=== PATIENT | male | born 1960 | race Caucasian/White ===

== ENCOUNTER 2021-01-16 11:58 | Inpatient (IN) | payer OTHER ==
[~2021-01-16] VITALS: Ht 182.9 cm; Wt 92.6 kg
[2021-01-16] MEDS ORDERED: LORAZEPAM INJ 2 MG/ML VIAL ONE (12:05)
[2021-01-16 12:24] LABS: BASOPHILS % (AUTO) 0.9 % (0.0-2.0); EOSINOPHILS % (AUTO) 2.5 % (0.0-6.0); HEMATOCRIT 44 % (39-51); HEMOGLOBIN 14.4 g/dL (13.5-17.5); LYMPHOCYTES # (AUTO) 0.9 /CMM (0.8-4.8); LYMPHOCYTES % (AUTO) 17.3 % (20.0-44.0); MEAN CORPUSCULAR HGB CONC 33 g/dl (31.0-36.0); MEAN CORPUSCULAR VOLUME 91 fL (80-96); MONOCYTES # (AUTO) 0.4 /CMM (0.1-1.30); MONOCYTES % (AUTO) 8.8 % (2.0-12.0); NEUTROPHILS # (AUTO) 3.5 /CMM (1.8-8.9); NEUTROPHILS % (AUTO) 70.5 % (43.0-81.0); PLATELET COUNT (AUTO) 222 /CMM (150-450); RED BLOOD CELL COUNT(AUTO) 4.81 MIL/uL (4.5-6.0); WHITE BLOOD COUNT (AUTO) 4.9 K/uL (4.3-11.0)
--- NOTE | 2021-01-16 12:24 | NUR ---
Patient leif, from home, came in due to recurrent seizure. On room air, breathing evenly and unlabored. Connected to the monitor and pulse ox. kept comfortable, will continue to monitor accordingly.
--- NOTE | 2021-01-16 12:28 | NUR ---
DECREASE LOC, + SEIZURE ACTIVTY NOTED - ER MD AT BEDSIDE
--- NOTE | 2021-01-16 12:29 | NUR ---
ACTIVE SEIZURE NOTED - ER NOTIFIED - ATIVAN 2 MG IVP X 1
[2021-01-16] MEDS ORDERED: IV NS 0.9% 1,000 ML BAG IV ONE (12:30)
[2021-01-16] MEDS ORDERED: LEVETIRACETAM (500MG) 500 MG in IV NS 0.9% 100 ML IV ONE (12:30)
[2021-01-16] MEDS ORDERED: LORAZEPAM INJ 2 MG/ML VIAL IVP ONE (12:30)
[2021-01-16 12:40] LABS: ALBUMIN 3.6 g/dL (3.4-5.0); BILIRUBIN,DIRECT 0.1 mg/dL (0.0-0.2); BILIRUBIN,TOTAL 0.6 mg/dL (0.2-1.0); CALCIUM, SERUM 9.1 mg/dL (8.5-10.1); POTASSIUM 3.6 mmol/L (3.5-5.1); TOTAL PROTEIN, SERUM 7.1 g/dL (6.4-8.2)
[2021-01-16] MEDS ORDERED: AMLO-213 PO (13:17)
[2021-01-16] MEDS ORDERED: METO-357 PO (13:17)
[2021-01-16] MEDS ORDERED: CHOL200010 PO (13:17)
[2021-01-16] MEDS ORDERED: TAMS-12 PO (13:17)
[2021-01-16] MEDS ORDERED: PHEN100C12 PO (13:17)
[2021-01-16] MEDS ORDERED: LISI20TA30 PO (13:17)
[2021-01-16] MEDS ORDERED: ASPI-1169 PO (13:17)
[2021-01-16] MEDS ORDERED: RIVA10TA PO (13:17)
--- NOTE | 2021-01-16 13:31 | NUR ---
covid 19 swab collected and sent to lab
--- NOTE | 2021-01-16 14:00 | NUR ---
[facility] CALLED ENVIRONMENTAL SCIENCE TECHNICIAN PAGED.
--- NOTE | 2021-01-16 14:20 | NUR ---
LAB HAS THE ANTIGEN NOW.
[2021-01-16] MEDS ORDERED: ONDANSETRON HCL/PF 4 MG/2 ML VIAL IVP PRN (14:30)
[2021-01-16] MEDS ORDERED: phenytoin SODIUM IV 1,000 MG in IV NS 0.9% 100 ML IV ONE (14:30)
[2021-01-16] MEDS ORDERED: HYDROCODONE/APAP 5/325MG TABLET PO PRN (14:30)
[2021-01-16] MEDS ORDERED: IV NS 0.9% 1,000 ML IV PRN (14:30)
[2021-01-16] MEDS ORDERED: ACETAMINOPHEN 325 MG TABLET PO PRN (14:30)
[2021-01-16] MEDS ORDERED: Z GUARD REMEDY 2 OZ OINT TP PRN (14:30)
--- NOTE | 2021-01-16 14:49 | NUR ---
received a call from the lab regarding covid 19 result "negative", notified.
--- NOTE | 2021-01-16 14:55 | NUR ---
GOT BED 306-2
--- NOTE | 2021-01-16 15:50 | NUR ---
RAILROAD WHEELS AND AXLE INSPECTOR ADMITTING NOTE RECEIVED REPORT FROM ER NURSE. PT ARRIVED IN UNIT AND BROUGHT INTO ROOM 306-2 [id number] VIA GURNEY ACCOMPANIED BY ER NURSE. PT IS A/O X 2-3 WITH PERIODS OF CONFUSION, VERBAL, FAROESE SPEAKING AND ABLE TO MAKE NEEDS KNOWN WITH NO C/O PAIN AT THIS TIME. PT IS ON OXYGEN 2LPM VIA NC WITH NO S/SX OF RESPIRATORY DISTRESS OR SOB. PT'S TELE MONITOR SHOWS NSR AT 69 BPM, IN NO CARDIAC DISTRESS AT THIS TIME. PT HAS AN IV ACCESS ON RIGHT AC G#20 SL, AND LEFT FOREARM G#20 SL, BOTH PATENT, INTACT AND FLUSHING WELL WITH ON S/SX OF INFECTION OR IRRITATION NOTED. PT'S SKIN IS INTACT. PT ORIENTED TO UNIT AND TO ROOM WITH SUCCESSFUL RETURN DEMONSTRATION AND VERBALIZATION OF UNDERSTANDING. SAFETY MEASURES IN PLACE: BED IN LOWEST POSITION AND LOCKED WITH BOTH UPPER SIDE RAILS UP X 2. CALL LIGHT PLACED WITHIN REACH. WILL CONTINUE TO MONITOR.
[2021-01-16 18:00] VITALS: BP 107/83
[2021-01-16] MEDS: RIVAROXABAN 10 MG TABLET PO SCH (18:48)
--- NOTE | 2021-01-16 18:50 | NUR ---
GRAVES REGISTRATION SPECIALIST CLOSING NOTE PT IS IN BED, AWAKE, RESPONSIVE AND WATCHING TV. PT IS A/O X 2-3 WITH PERIODS OF CONFUSION, VERBAL, INDONESIAN SPEAKING AND ABLE TO MAKE NEEDS KNOWN WITH NO C/O PAIN AT THIS TIME. PT IS ON OXYGEN 2LPM VIA NC WITH NO S/SX OF RESPIRATORY DISTRESS OR SOB. PT'S TELE MONITOR SHOWS NSR AT 65 BPM WITH OCCASIONAL PAUSES AND A.FIB, IN NO CARDIAC DISTRESS AT THIS TIME. PT HAS AN IV ACCESS ON RIGHT AC G#20 SL, AND LEFT FOREARM G#20 SL, BOTH PATENT, INTACT AND FLUSHING WELL WITH ON S/SX OF INFECTION OR IRRITATION NOTED. ALL CARE, NEEDS, MEDICATIONS AND TREATMENTS GIVEN ON TIME ORDERED PER FACILITY PROTOCOL. SAFETY MEASURES MAINTAINED: BED IN LOWEST POSITION AND LOCKED WITH BOTH UPPER SIDE RAILS UP X 2. CALL LIGHT PLACED WITHIN REACH. WILL ENDORSE TO COMMERCIAL OCEAN CLAMMER NURSE.
--- NOTE | 2021-01-16 19:30 | NUR ---
commercial loan analyst opening notes Received Pt from morning nurse. Pt is resting in bed comfortably. Pt is alert and orientedX2-3 with episode of confusion and able to make needs known. Respiration on 2 L NC with O2 sat is 100%. No SOB. No S/S of distress noted. Tele monitor showed Afib with Hr at 61. Iv site at RAc# 20 is clean, intact and flushes well. Iv site at LFA# 20 is clean, intact and SL. Safety precautions is maintained. Bed at low position, brakes locked, side rails upX3 and padded, hob elevated, urinal at the bedside, bed alarm is on and call light is within reach. Will continue to monitor.
[2021-01-16 20:00] VITALS: BP 134/89
[2021-01-16] MEDS: PHENYTOIN EXTENDED RELEASE 100 MG CAPSULE PO SCH (20:25)
[2021-01-16] MEDS ORDERED: TAMSULOSIN 0.4 MG CAP.SR.24H PO SCH (22:00)
[2021-01-17] VITALS: BP 138/81
[2021-01-17 04:00] VITALS: BP 125/84
[2021-01-17] MEDS: PHENYTOIN EXTENDED RELEASE 100 MG CAPSULE PO SCH (04:01)
[2021-01-17 05:59] LABS: BASOPHILS # (AUTO) 0.1 /CMM (0.0-0.2); EOSINOPHILS % (AUTO) 2.9 % (0.0-6.0); HEMATOCRIT 42 % (39-51); HEMOGLOBIN 13.9 g/dL (13.5-17.5); LYMPHOCYTES # (AUTO) 1.4 /CMM (0.8-4.8); LYMPHOCYTES % (AUTO) 22.8 % (20.0-44.0); MEAN CORPUSCULAR HGB CONC 34 g/dl (31.0-36.0); MEAN CORPUSCULAR VOLUME 89 fL (80-96); MONOCYTES # (AUTO) 0.7 /CMM (0.1-1.30); NEUTROPHILS # (AUTO) 3.9 /CMM (1.8-8.9); NEUTROPHILS % (AUTO) 62.3 % (43.0-81.0); PLATELET COUNT (AUTO) 196 /CMM (150-450); RED BLOOD CELL COUNT(AUTO) 4.65 MIL/uL (4.5-6.0); WHITE BLOOD COUNT (AUTO) 6.2 K/uL (4.3-11.0)
--- NOTE | 2021-01-17 06:40 | NUR ---
supervisor long goods closing notes Pt is resting in bed comfortably. Pt is alert and orientedX2-3 with episode of confusion and able to make needs known. Respiration on 2 L NC with O2 sat is 98%. No SOB. No S/S of distress noted. VS is stable. afebrile. Tele monitor showed Afib with Hr at 60. Routine meds were given as ordered. Iv site at RAc# 20 is clean, intact and flushes well. Iv site at LFA# 20 is clean, intact and infuising well NS@ 75 ml/hr. Kept Pt clean, dry and comfortable. All needs met and attended. Safety precautions is maintained. Seizure precautions is maintained. Bed at low position, brakes locked, side rails upX3 and padded, hob elevated, urinal at the bedside, bed alarm is on and call light is within reach. Will endorse to morning nurse for BHAKTI.
[2021-01-17 06:57] LABS: ALBUMIN 3.3 g/dL (3.4-5.0); BILIRUBIN,TOTAL 0.7 mg/dL (0.2-1.0); CALCIUM, SERUM 8.8 mg/dL (8.5-10.1); CREATININE 0.7 mg/dL (0.6-1.3); PHOSPHORUS 3.5 mg/dL (2.5-4.9); POTASSIUM 3.6 mmol/L (3.5-5.1); TOTAL PROTEIN, SERUM 6.5 g/dL (6.4-8.2)
[2021-01-17 08:00] VITALS: BP 150/102
[2021-01-17] MEDS: RIVAROXABAN 10 MG TABLET PO SCH (08:20)
[2021-01-17] MEDS ORDERED: AMLODIPINE BESYLATE 10 MG TABLET PO SCH (09:00)
[2021-01-17] MEDS ORDERED: LISINOPRIL (20MG) 20 MG TABLET PO SCH (09:00)
[2021-01-17] MEDS ORDERED: METOPROLOL SUCCINATE 50 MG TAB.SR.24H PO SCH (09:00)
[2021-01-17] MEDS ORDERED: RIVAROXABAN 10 MG TABLET PO SCH (09:00)
[2021-01-17] MEDS ORDERED: CHOLECALCIFEROL 1,000 UNIT TABLET (VIT D3) PO SCH (09:00)
[2021-01-17] MEDS ORDERED: ASPIRIN 81 MG TAB.CHEW PO SCH (09:00)
[2021-01-17] MEDS ORDERED: PHEN100C4 PO (11:14)
[2021-01-17 12:00] VITALS: BP 140/81
[2021-01-17] MEDS ORDERED: PHENYTOIN EXTENDED RELEASE 100 MG CAPSULE PO SCH (13:00)
[2021-01-17 15:49] VITALS: BP 147/78
--- NOTE | 2021-01-17 19:06 | NUR ---
RN MS DISCHARGE NOTE PT AWAKE, ALERT , RESPONSIVE, AMBULATES IN ROOM WITH STEADY GAI , NORMAL DIET TOLERATED WELL, NO C/O PAIN , NO C/O DISTRESS SEEN BY DR DESHPANDE AND DR Rambo HUTTON, DISCHARGE ORDER GIVEN , DISCHRAGE AND MED INSTRUCTIONS PROVIDED TO PATIENT, PATIENT NEW PRESCRIPTION SENT BY PROVIDER ELECRONICALLY TO PATIENTS PREFERRED PHARMACY VERBALIZED UNDERSTANDING, BELONGINGS ACCOUNTED FOR , ASSISTED TO HOSPITAL LOBBY VIA WHEELCHAIR , LEFT VIA PRIVATE CAR IN STABLE CONDITION WITH FAMILY MEMBER.
== END 2021-01-17 19:00 | disposition home or self-care (01) | DRG 53 ==
LOC: ER 12:02 → TELE 15:29
PROVIDERS: ADMIT Internal Medicine; ATTEND Nurse Practitioner Acute Care
DX: G40.909 Epilepsy, unspecified, not intractable, without status epilepticus (principal); I25.10 Atherosclerotic heart disease of native coronary artery without angina pectoris; I10 Essential (primary) hypertension; N40.0 Benign prostatic hyperplasia without lower urinary tract symptoms; Z20.822 Contact with and (suspected) exposure to COVID-19; I69.354 Hemiplegia and hemiparesis following cerebral infarction affecting left non-dominant side; I48.91 Unspecified atrial fibrillation; Z79.82 Long term (current) use of aspirin; Z79.899 Other long term (current) drug therapy; I67.2 Cerebral atherosclerosis; Z79.01 Long term (current) use of anticoagulants; N17.9 Acute kidney failure, unspecified
CPT/HCPCS: 36415; 70450-TC; 71045-TC; 80048-TC; 80053-TC; 80061-TC; 80076-TC; 80185-TC; 82962-TC; 83735-TC; 84100-TC; 85025-TC; 87081-TC; 93307-TC; C9803; G0378; J1165; J1953; J2060; J7030

== ENCOUNTER 2021-11-12 10:25 | Emergency (ER) | payer OTHER ==
[~2021-11-12] VITALS: Ht 182.9 cm; Wt 82.6 kg
[~2021-11-12 10:25] MED LIST: AMLO-213 PO; ASPI-1169 PO; CHOL200010 PO; LISI20TA30 PO; METO-357 PO; PHEN100C4 PO; RIVA10TA PO; TAMS-12 PO
--- NOTE | 2021-11-12 10:31 | NUR ---
GHISLAINE FROM HOME C/O WITNESSED SEIZURE EPISODE. THE PATIENT IS ALERT AND ORIENTED X3 WITH EPISODES OF FORGETFULNESS. DENIES PAIN. IN ROOM AIR AND DENIES SOB. RESPIRATION REGULAR AND UNLABORED. ATTACHED TO THE MONITOR. WARM BLANKET PROVIDED FOR COFMORT. SEIZURE PRECAUTIONS TAKEN. WILL CONTINUE TO MONITOR THE PATIENT.
[2021-11-12] MEDS ORDERED: PHEN100C4 PO ×2 (10:34)
[2021-11-12] MEDS ORDERED: BACL10TA PO (10:35)
--- NOTE | 2021-11-12 10:50 | NUR ---
covid antigen swab done and sent to the lab
[2021-11-12 11:23] LABS: BASOPHILS # (AUTO) 0.1 K/uL (0.0-0.2); BASOPHILS % (AUTO) 1.1 % (0.0-2.0); EOSINOPHILS % (AUTO) 6.1 % (0.0-6.0); HEMATOCRIT 38 % (39-51); HEMOGLOBIN 12.7 g/dL (13.5-17.5); LYMPHOCYTES # (AUTO) 0.7 K/uL (0.8-4.8); MEAN CORPUSCULAR HGB CONC 34 g/dl (31.0-36.0); MEAN CORPUSCULAR VOLUME 95 fL (80-96); MONOCYTES # (AUTO) 0.4 K/uL (0.1-1.30); MONOCYTES % (AUTO) 8.3 % (2.0-12.0); NEUTROPHILS % (AUTO) 67.5 % (43.0-81.0); PLATELET COUNT (AUTO) 216 K/uL (150-450); RED BLOOD CELL COUNT(AUTO) 4.02 MIL/uL (4.5-6.0); WHITE BLOOD COUNT (AUTO) 4.4 K/uL (4.3-11.0)
[2021-11-12 11:33] LABS: CALCIUM, SERUM 8.8 mg/dL (8.5-10.1); CREATININE 0.8 mg/dL (0.6-1.3); POTASSIUM 3.6 mmol/L (3.5-5.1)
[2021-11-12 11:38] LABS: ALBUMIN 3.5 g/dL (3.4-5.0); BILIRUBIN,DIRECT 0.1 mg/dL (0.0-0.2); BILIRUBIN,TOTAL 0.2 mg/dL (0.2-1.0); TOTAL PROTEIN, SERUM 6.8 g/dL (6.4-8.2)
--- NOTE | 2021-11-12 11:51 | NUR ---
ROGER BARRON (NEURO) [phone]
[2021-11-12 11:58] LABS: PHENYTOIN (DILANTIN) 10.1 ug/ml (10.0-20.0)
--- NOTE | 2021-11-12 12:28 | NUR ---
LEFT MESSAGE TO DR ROGER BARRON TO CALL ER PER DR LOUIS
[2021-11-12] MEDS ORDERED: phenytoin SODIUM IV 400 MG in IV NS 0.9% 50 ML IV ONE (12:30)
--- NOTE | 2021-11-12 12:51 | NUR ---
urine collected and sent to the lab
--- NOTE | 2021-11-12 13:33 | NUR ---
CALL THE CAR CALLED FOR TRANSPORT. ETA 1-3 HRS. REF # [id number]
--- NOTE | 2021-11-12 13:43 | NUR ---
CHANGED ETA 1700.
--- NOTE | 2021-11-12 17:50 | NUR ---
PT MEDICALLY CLEARED, DISCHARGE TO HOME. STABLE VITALS. DISCHARGE VIA PRIVATE AMBULANCE.
[2021-11-12 17:52] VITALS: BP 135/70
== END 2021-11-12 17:53 | disposition home or self-care (01) ==
LOC: ER 10:28
DX: G40.909 Epilepsy, unspecified, not intractable, without status epilepticus (principal); I48.91 Unspecified atrial fibrillation; Z79.01 Long term (current) use of anticoagulants; Z79.899 Other long term (current) drug therapy; I69.954 Hemiplegia and hemiparesis following unspecified cerebrovascular disease affecting left non-dominant side; Z20.822 Contact with and (suspected) exposure to COVID-19; Z88.0 Allergy status to penicillin; Z79.82 Long term (current) use of aspirin
CPT/HCPCS: 36415; 70450; 71045; 80048; 80076; 80185; 80307; 84484; 85025; 87426; 93005; 96365; 99285; C9803; J1165

== ENCOUNTER 2022-02-19 05:16 | Emergency (ER) | payer OTHER ==
[~2022-02-19] VITALS: Ht 182.9 cm; Wt 81.6 kg
[~2022-02-19 05:16] MED LIST changes: +BACL10TA PO
--- NOTE | 2022-02-19 05:34 | NUR ---
TO ER BED 10. [id number] FROM HOME C/O FALLING FROM BED, COULD NOT GET BACK INTO BED. DENIES KO. ADMITS TO HITTING HEAD. CONNECTED TO MONITOR. FALL PRECAUTIONS IN PLACE. WILL CONTINUE TO MONITOR.
--- NOTE | 2022-02-19 05:59 | NUR ---
COVID SWAB COLLECTED SENT TO LAB
--- NOTE | 2022-02-19 06:03 | NUR ---
RFA #18G S/L; PATENT AND INTACT. BLOOD COLLECTED AND SENT TO LAB
--- NOTE | 2022-02-19 06:04 | NUR ---
BLOOD TAKEN TO CT VIA JONNYRNEYMAR
[2022-02-19 06:13] LABS: BASOPHILS % (AUTO) 0.5 % (0.0-2.0); EOSINOPHILS % (AUTO) 2.7 % (0.0-6.0); HEMATOCRIT 42 % (39-51); HEMOGLOBIN 14.3 g/dL (13.5-17.5); LYMPHOCYTES # (AUTO) 1.1 K/uL (0.8-4.8); MEAN CORPUSCULAR HGB CONC 34 g/dl (31.0-36.0); MEAN CORPUSCULAR VOLUME 88 fL (80-96); MONOCYTES # (AUTO) 0.4 K/uL (0.1-1.30); MONOCYTES % (AUTO) 8.1 % (2.0-12.0); NEUTROPHILS # (AUTO) 3.6 K/uL (1.8-8.9); NEUTROPHILS % (AUTO) 67.7 % (43.0-81.0); PLATELET COUNT (AUTO) 173 K/uL (150-450); RED BLOOD CELL COUNT(AUTO) 4.79 MIL/uL (4.5-6.0); WHITE BLOOD COUNT (AUTO) 5.3 K/uL (4.3-11.0)
--- NOTE | 2022-02-19 06:14 | NUR ---
PT RETURNED TO ER BED [address]
[2022-02-19 06:28] LABS: ALANINE AMINOTRANSFERASE 17 U/L (12-78); ALBUMIN 4.5 g/dL (3.4-5.0); ALKALINE PHOSPHATASE 110 U/L (46-116); ASPARTATE AMINOTRANSFERASE 21 U/L (15-37); BILIRUBIN,DIRECT 0.1 mg/dL (0.0-0.2); BILIRUBIN,TOTAL 0.5 mg/dL (0.2-1.0); CALCIUM, SERUM 9.3 mg/dL (8.5-10.1); CARBON DIOXIDE 34 mmol/L (21-32); CHLORIDE 103 mmol/L (98-107); CREATININE 0.7 mg/dL (0.6-1.3); GLUCOSE 91 mg/dL (74-106); POTASSIUM 3.5 mmol/L (3.5-5.1); SODIUM SERUM 140 mmol/L (136-145); TOTAL PROTEIN, SERUM 8.3 g/dL (6.4-8.2); UREA NITROGEN, BLOOD 15 mg/dL (7-18)
--- NOTE | 2022-02-19 08:07 | NUR ---
SPOKE WITH EDIN ROBLES, STATED SHE IS FAXING CLINICALS TO [facility]AC[facility] AND WILL CALL BACK.
--- NOTE | 2022-02-19 08:12 | NUR ---
SPOKE WITH EDIN STUBBS [phone], ASKED TO BE CALLED BACK WHEN RAPID COVID RESULTS ARE IN.
[2022-02-19] MEDS ORDERED: LEVE750T10 PO (08:41)
[2022-02-19] MEDS ORDERED: CHLO25TA13 PO (08:41)
--- NOTE | 2022-02-19 09:14 | NUR ---
SPOKE WITH ENOC, QUARTER SEAMER AT [facility], AND WAS NOTIFIED THAT THE PT HAS BEEN ACCETED TO NURSING FACILITIES. ([facility] OR [facility]). NOTIED THAT PT OF THE TWO ACCEPTING FACILITIES AND THE PT CHOSE TO GO TO [facility]. ALSO FAXED ED MD NOTE AND COVID STATUS ON PT TO [phone]
[2022-02-19] MEDS ORDERED: PHEN100C4 PO (10:11)
--- NOTE | 2022-02-19 10:16 | NUR ---
DR. LANIER MADE AWARE RE: HOME MEDICATION. WITH NEW ORDER, OKAY TO GIVE AM DOSE OF DILANTIN AND KEPPRA DOSE (DILANTIN 300 MG AND KEPPRA 750 MG). PRIMARY RN AWARE.
[2022-02-19] MEDS ORDERED: LEVETIRACETAM (250 MG) 250 MG TABLET PO ONE ×2 (10:20→11:00)
[2022-02-19] MEDS ORDERED: PHENYTOIN EXTENDED RELEASE 100 MG CAPSULE PO ONE ×2 (10:21→11:00)
--- NOTE | 2022-02-19 10:28 | NUR ---
DILANTIN AND KEPPRA GIVEN VIA PO PER PATIENT REQUESTED AND MD ORDERED. PATIENT MARÍA WELL. PRIMARY RN AWARE.
--- NOTE | 2022-02-19 11:19 | NUR ---
ENOC CALLED REGARDING PT ACCEPTANCE TO [facility] GOING TO ROOM 7B NUMBER FOR REPORT [phone] ETA OF [facility] 1230
--- NOTE | 2022-02-19 11:50 | NUR ---
REPORT GIVEN TO ANGELITA FOR BHAKTI
[2022-02-19 12:02] VITALS: BP 144/82
--- NOTE | 2022-02-19 12:30 | NUR ---
IV removed. Catheter intact and site benign. Pressure and 4x4 applied to site. No bleeding noted.
--- NOTE | 2022-02-19 12:59 | NUR ---
TRANSPORTATION ARRIVED, REPORT WAS GIVEN TO EMT, [facility] IN STABLE CONDITION.
== END 2022-02-19 13:01 ==
LOC: ER 05:18
DX: G40.909 Epilepsy, unspecified, not intractable, without status epilepticus (principal); I69.954 Hemiplegia and hemiparesis following unspecified cerebrovascular disease affecting left non-dominant side; Z79.899 Other long term (current) drug therapy; I48.91 Unspecified atrial fibrillation; Z88.0 Allergy status to penicillin; Z79.01 Long term (current) use of anticoagulants; Z20.822 Contact with and (suspected) exposure to COVID-19
CPT/HCPCS: 36415; 70450; 80048; 80076; 84484; 85025; 87426; 99285; C9803

== ENCOUNTER 2022-11-10 09:11 | Inpatient (IN) | payer OTHER ==
[~2022-11-10] VITALS: Ht 188 cm; Wt 97.5 kg
[~2022-11-10 09:11] MED LIST changes: -BACL10TA PO; +CHLO25TA13 PO; +LEVE750T10 PO; -RIVA10TA PO
[2022-11-10] MEDS ORDERED: LORAZEPAM INJ 2 MG/ML VIAL ONE (09:15)
--- NOTE | 2022-11-10 09:15 | NUR ---
DR FLANAGAN AT BEDSIDE FOR EVAL
--- NOTE | 2022-11-10 09:17 | NUR ---
ACCUCHECK BS 186MG/DL
--- NOTE | 2022-11-10 09:17 | NUR ---
SEIZURE PRECS INITIATED; RT AT BEDSIDE
[2022-11-10] MEDS ORDERED: ROCURONIUM BROMIDE 50 MG/5 ML IV ONE (09:18)
--- NOTE | 2022-11-10 09:19 | NUR ---
DR. FLANAGAN AT BEDSIDE FOR INTUBATION.
--- NOTE | 2022-11-10 09:20 | NUR ---
MOVE SHEET SUBMITTED.
[2022-11-10] MEDS ORDERED: PROPOFOL 100 ML ONE ×4 (09:21→21:06)
--- NOTE | 2022-11-10 09:21 | NUR ---
STEFANIA 100 ML GIVEN.
[2022-11-10] MEDS ORDERED: LORAZEPAM INJ 2 MG/ML VIAL IV ONE (09:30)
[2022-11-10] MEDS: PROPOFOL 100 ML IV PRN ×4 (09:30→21:10)
--- NOTE | 2022-11-10 09:30 | NUR ---
BLOOD COLLECTED AND OBTAINED BY PHLEB AT BEDSIDE
--- NOTE | 2022-11-10 09:32 | NUR ---
COVID SWAB COLLECTED AND SENT TO LAB.
--- NOTE | 2022-11-10 09:35 | NUR ---
QUINTANILLA CATHETER DONE, URINE COLLECTED AND SENT TO LAB.
[2022-11-10 09:44] LABS: BASOPHILS # (AUTO) 0.1 K/uL (0.0-0.2); BASOPHILS % (AUTO) 0.4 % (0.0-2.0); EOSINOPHILS % (AUTO) 0.2 % (0.0-6.0); HEMATOCRIT 44 % (39-51); HEMOGLOBIN 14.6 g/dL (13.5-17.5); LYMPHOCYTES # (AUTO) 0.6 K/uL (0.8-4.8); LYMPHOCYTES % (AUTO) 4.1 % (20.0-44.0); MEAN CORPUSCULAR HGB CONC 33 g/dl (31.0-36.0); MEAN CORPUSCULAR VOLUME 90 fL (80-96); MONOCYTES # (AUTO) 1.5 K/uL (0.1-1.30); MONOCYTES % (AUTO) 9.5 % (2.0-12.0); NEUTROPHILS # (AUTO) 13.5 K/uL (1.8-8.9); NEUTROPHILS % (AUTO) 85.8 % (43.0-81.0); PLATELET COUNT (AUTO) 225 K/uL (150-450); RED BLOOD CELL COUNT(AUTO) 4.89 MIL/uL (4.5-6.0); WHITE BLOOD COUNT (AUTO) 15.8 K/uL (4.3-11.0)
--- NOTE | 2022-11-10 09:44 | NUR ---
VENT SETTINGS: FIO2 50% PEEP 5 PEAK PRESSURE 23 MINUTE VOLUME 9.6 TIDAL VOLUME 557 RESP RATE 16
[2022-11-10 10:03] LABS: CALCIUM, SERUM 8.7 mg/dL (8.5-10.1); CARBON DIOXIDE 20 mmol/L (21-32); CHLORIDE 99 mmol/L (98-107); CREATININE 1.3 mg/dL (0.6-1.3); GLUCOSE 195 mg/dL (74-106); POTASSIUM 3.5 mmol/L (3.5-5.1); SODIUM SERUM 133 mmol/L (136-145); UREA NITROGEN, BLOOD 13 mg/dL (7-18)
--- NOTE | 2022-11-10 10:05 | NUR ---
PT TAKEN TO CT VIA RNEYMAR.
[2022-11-10 10:09] LABS: ALANINE AMINOTRANSFERASE 37 U/L (12-78); ALBUMIN 3.4 g/dL (3.4-5.0); ALCOHOL, BLOOD < 3 mg/dL (0-0); ALKALINE PHOSPHATASE 115 U/L (46-116); ASPARTATE AMINOTRANSFERASE 41 U/L (15-37); BILIRUBIN,DIRECT 0.1 mg/dL (0.0-0.2); BILIRUBIN,TOTAL 0.6 mg/dL (0.2-1.0); TOTAL PROTEIN, SERUM 7.6 g/dL (6.4-8.2)
--- NOTE | 2022-11-10 10:17 | NUR ---
RETURN FROM CT
[2022-11-10] MEDS ORDERED: ASPIRIN 81 MG TAB.CHEW NG SCH (11:00)
[2022-11-10] MEDS ORDERED: METOPROLOL TARTRATE 25 MG TABLET NG SCH (11:00)
[2022-11-10] MEDS ORDERED: DILTIAZEM HCL 50 MG IV IV ONE (11:00)
[2022-11-10] MEDS ORDERED: PHENYTOIN EXTENDED RELEASE 100 MG CAPSULE PO SCH (11:00)
[2022-11-10] MEDS ORDERED: LISINOPRIL (20MG) 20 MG TABLET NG SCH (11:00)
--- NOTE | 2022-11-10 11:11 | NUR ---
RADHA JESUS FOR INPATIENT [phone] WILL CONTACT TRANSFER TEAM.
--- NOTE | 2022-11-10 11:38 | NUR ---
NG TUBE INSERTED. GASTIC CONTENTS ASPERATED. ABDOMINAL GURGLE ON PUSH OF AIR ASCULTATED STAT CHEST X-RAY ORDERED TO CONFIRM PLACEMENT.
[2022-11-10 11:47] LABS: ABG BASE EXCESS 0.5 mmol/L; ABG PCO2 39.2 mmHg (35.0-45.0); ABG PO2 144.4 mmHg (75.0-100.0); COHb 0.5 % (0.5-1.5); MetHb 0.2 % (0.0-1.5); PEEP,BG 5 cm H2O; SITE, ABG Right Radial; VT, ABG 600 mL
[2022-11-10] MEDS ORDERED: DILTIAZEM HCL 50 MG IV ONE (11:59)
--- NOTE | 2022-11-10 12:00 | NUR ---
forensic toxicologist in room
[2022-11-10 13:34] LABS: BILIRUBIN,URINE NEGATIVE (NEGATIVE); COLOR,URINE YELLOW (YELLOW); LEUKOCYTE ESTERASE ,URINE 1+ (NEGATIVE); NITRITE, URINE POSITIVE (NEGATIVE); PROTEIN,URINE 1+ mg/dl (NEGATIVE); UGLUCOSE NEGATIVE (NEGATIVE); UROBILINOGEN,URINE 0.2 EU/dL (0.2)
[2022-11-10 13:40] LABS: BACTERIA,URINE Rare /HPF (None Seen)
[2022-11-10 13:41] LABS: RBC,URINE 0-2 /HPF (0-2); SQUAMOUS EPITHELIAL CELL,UR Few /HPF (None Seen)
--- NOTE | 2022-11-10 14:32 | NUR ---
MOTHER CALLED AND LEFT CONTACT NUMBER. [phone]
--- NOTE | 2022-11-10 16:53 | NUR ---
CALLED RADHA JESUS FOR INPATIENT [phone] FOR UPDATE LEFT VM
--- NOTE | 2022-11-10 17:00 | NUR ---
CALLED STAFF ACCOUNTANT [phone] OPTION 9 FOR UPDATE, KLARISSA JESUS TO CALL US BACK PER GERRI.
--- NOTE | 2022-11-10 17:23 | NUR ---
DR. DESHPANDE FROM [place] SPEAKING WITH DR. NICK.
--- NOTE | 2022-11-10 19:11 | NUR ---
PT IN BED SEDATED ON [facility] VENT O2 SAT 100%. VITALS ON STABLE. BREATHING IS EVEN AND UNLBAORED PT SUCTIONED ORALLY AND THROUGH ET TUBE. PROPOFOL RUNNING AT 35MCG NO S/S OF RESPIRATORY DISTRESS. 18G IN PLACE NO S/S OF INFILTRATION. BILATERALLY WRIST RESTRAINTS APPLIED TO PREVENT SELF INJURY. QUINTANILLA CATHETER IN PLACE DRAINING YELLOW URINE. NG TUBE IN PLACE PATENT AND CLAMPED AT PRE MEASURED LENGTH.
--- NOTE | 2022-11-10 19:21 | NUR ---
KLARISSA [phone] ALMEIDA WILL ACCEPT AT [facility] WILL CALL FOR PEER TO PEER.
--- NOTE | 2022-11-10 19:41 | NUR ---
REPORT RECEIVED FROM LANCE MICHEL. RECEIVED PATIENT SEDATED. CAME IN WITH SEIZURE. PATIENT HAS ET TUBE ATTACHED TO VENT ON AC SETTING WITH TV OF 600, FIO2 40%, RATE 14 AND PEEP 5. PATIENT HAS NG TUBE ON RIGHT NOSTRIL, WITH IFC ATTACHED TO UROBAG. RECEIVED WITH IV CANNULA G20 ON LEFT FA RUNNING IS PROPOFOL AT 38MCG/KG/MIN, AND G20 ON RIGHT WRIST. ATTACHED TO MONITOR. VITALS CHECKED.
--- NOTE | 2022-11-10 20:30 | NUR ---
DECREASE PROPOFOL TO 35MCG/KG/MIN. VITALS BP 105/70mmHg, HR 100bpm, SATS 98%, T 98.4.
--- NOTE | 2022-11-10 21:21 | NUR ---
SPOKE TO KLARISSA ALFARO CM, PT NEEDS HIGHER LEVEL OF CARE. CM GOING TO REFER PT TO [facility]
[2022-11-10] MEDS ORDERED: PHENYTOIN SODIUM IV ONE (23:30)
[2022-11-10] MEDS ORDERED: NS 0.9% IV ONE (23:30)
[2022-11-10 23:46] LABS: ABG BASE EXCESS 0.5 mmol/L; ABG PCO2 34.1 mmHg (35.0-45.0); ABG PO2 122.8 mmHg (75.0-100.0); MetHb 0.4 % (0.0-1.5); O2Hb 97.9 % (94.0-97.0); SITE, ABG Right Radial
--- NOTE | 2022-11-10 23:49 | NUR ---
ABG DONE AT BEDSIDE
[2022-11-11] MEDS ORDERED: PHENYTOIN SODIUM IV 100 MG/2ML VIAL ONE ×3 (00:02→20:05)
--- NOTE | 2022-11-11 00:02 | NUR ---
100MG DILANTIN IV NOT GIVEN. PATIENT JUST STARTED WITH BOLUS OF 2GMS DILANTIN IV. NEXT DOSE IS 6AM OF 100MG DILANTIN IV
[2022-11-11] MEDS ORDERED: phenytoin SODIUM IV 250 MG/5 ML VIAL IV ONE ×2 (00:06→00:09)
[2022-11-11] MEDS: PHENYTOIN SODIUM IV 100 MG/2ML VIAL IV SCH ×4 (01:00→18:00)
--- NOTE | 2022-11-11 01:30 | NUR ---
PATIENT IS CALM. WITH OCCASIONAL MINOR MOVEMENT.
[2022-11-11] MEDS ORDERED: PROPOFOL 100 ML ONE ×6 (01:33→23:02)
[2022-11-11] MEDS: PROPOFOL 100 ML IV PRN ×5 (01:37→23:06)
--- NOTE | 2022-11-11 05:36 | NUR ---
UPDATE GIVEN TO STUDIO ASSOCIATE TIMMY. CALLED KLARISSA ([facility]) ABOUT PT'S ROOM #. LEFT VM. WAITING FOR RESPONSE
--- NOTE | 2022-11-11 06:11 | NUR ---
MAY . FF UP FOR HOSPITAL PLACEMENT.
--- NOTE | 2022-11-11 06:32 | NUR ---
PATIENT WILL NOT BE GOING ANYWHERE SINCE WE DONT HAVE A FINAL ACCEPTANCE FROM ANY HOSPITAL THAT CM CONTACTED.
[2022-11-11 09:06] LABS: BASOPHILS % (AUTO) 0.1 % (0.0-2.0); EOSINOPHILS % (AUTO) 0.1 % (0.0-6.0); HEMATOCRIT 45 % (39-51); HEMOGLOBIN 14.4 g/dL (13.5-17.5); LYMPHOCYTES # (AUTO) 0.8 K/uL (0.8-4.8); LYMPHOCYTES % (AUTO) 4.6 % (20.0-44.0); MEAN CORPUSCULAR HGB CONC 32 g/dl (31.0-36.0); MEAN CORPUSCULAR VOLUME 92 fL (80-96); MONOCYTES # (AUTO) 2.4 K/uL (0.1-1.30); MONOCYTES % (AUTO) 13.2 % (2.0-12.0); NEUTROPHILS # (AUTO) 15.1 K/uL (1.8-8.9); PLATELET COUNT (AUTO) 208 K/uL (150-450); RED BLOOD CELL COUNT(AUTO) 4.88 MIL/uL (4.5-6.0); WHITE BLOOD COUNT (AUTO) 18.4 K/uL (4.3-11.0)
[2022-11-11 09:19] LABS: CALCIUM, SERUM 8.7 mg/dL (8.5-10.1); CREATININE 2.1 mg/dL (0.6-1.3); POTASSIUM 4.1 mmol/L (3.5-5.1)
[2022-11-11] MEDS ORDERED: AMLODIPINE BESYLATE 5 MG TABLET ONE (09:20)
[2022-11-11] MEDS: AMLODIPINE BESYLATE 10 MG TABLET NG SCH (09:21)
[2022-11-11 09:26] LABS: BILIRUBIN,TOTAL 0.4 mg/dL (0.2-1.0); MAGNESIUM 2.4 mg/dL (1.8-2.4); PHOSPHORUS 4.6 mg/dL (2.5-4.9); TOTAL PROTEIN, SERUM 7.3 g/dL (6.4-8.2)
[2022-11-11] MEDS ORDERED: LEVETIRACETAM SOL (5 ML) 100 MG/ML UDC ONE (09:48)
[2022-11-11] MEDS: LEVETIRACETAM SOL (5 ML) 100 MG/ML UDC GT SCH (09:56)
--- NOTE | 2022-11-11 09:57 | NUR ---
NGT IN PLACE, NO RESIDUAL NOTED. KEPPRA GIVEN INDICATED VIA NGT. FLUSHED W/ WATER.
[2022-11-11] MEDS ORDERED: ACETAMINOPHEN 650 MG/20.3 ML UDC ONE (10:16)
[2022-11-11] MEDS ORDERED: ACETAMINOPHEN 650 MG/20.3 ML UDC PO ONE (10:30)
--- NOTE | 2022-11-11 12:09 | NUR ---
REFAXED CLINICALS TO [phone]
--- NOTE | 2022-11-11 12:50 | NUR ---
COVID ANTIGEN COLLECTED AND SENT TO LAB
--- NOTE | 2022-11-11 12:52 | NUR ---
BILL MUELLER [phone] MOTHER CALLED FOR UPDATE.
--- NOTE | 2022-11-11 15:17 | NUR ---
Jono wren in [facility] - 11/11/22 [address] ZAYAS AT [facility] CALLED SPEAKING TO DR LOCKETT.
--- NOTE | 2022-11-11 15:17 | NUR ---
DR NUNES AT [facility] CALLED SPEAKING TO DR LOCKETT.
--- NOTE | 2022-11-11 19:24 | NUR ---
HOOKED ANOTHER PROPOFOL DRIP RUNNING AT 35mcg/kg/min. PROPOFOL LINE CHANGED.
--- NOTE | 2022-11-11 19:25 | NUR ---
RECEIVED PATIENT INTUBATED. FOR ADMISSION TO HIGHER LEVEL OF CARE DUE TO SEIZURE. PATIENT IS INTUBATED WITH ET SIZE OF 7.5 ATTACHED TO VENT ON AC MODE, FIO2 40%, TV 600ML, RATE 14, PEEP 5. PATIENT HAS NGT F16, WITH IFC F16 ATTACHED TO UROBAG. PATIENT HAS 2 IV EL G20 ON LEFT FA, WITH IV EL G20 ON RIGHT HAND. PATIENT IS WITH PROPOFOL DRIP AT 35MCG/KG/MIN. ATTACHED TO URBAN AND REGIONAL PLANNER. VITALS CHECKED.
--- NOTE | 2022-11-11 20:00 | NUR ---
PT IN BED SEDATED BREATHING IS EVEN AND UNLABORED O2SAT 100%. IV CATHETHER IS CLEANS AND DRY NO S/S OF INFLITRATION. PROPOFOL RUNNING AT 35MCG LINE CHANGED BY MATERIALS MGMT TECH NURSE AND EVERY 12H PER HOSPITAL POLICY. NG TUBE CLAMPED IN PLACE AND PATENT GASTRIC CONTENT ASPERATED. QUINTANILLA CATHETER IN PLACE 700ML TEA COLORED URINE OUTPUT. VITAL SIGNS WNL. NO S/S OF ACUTE DISTRESS. HOB ELEVATED TO LOW FOWLERS BED LOCKED IN IN LOWEST POSITION
[2022-11-11 21:52] LABS: ABG BASE EXCESS 1.7 mmol/L; ABG PCO2 38.1 mmHg (35.0-45.0); ABG PH 7.446 (7.350-7.450); ABG PO2 109.8 mmHg (75.0-100.0); COHb 0.2 % (0.5-1.5); MetHb 0.4 % (0.0-1.5); O2Hb 97.5 % (94.0-97.0); PEEP,BG 5 cm H2O; SITE, ABG Left Radial; VT, ABG 600 mL
[2022-11-11] MEDS: IV NS 0.9% 1,000 ML IV PRN (21:59)
--- NOTE | 2022-11-11 22:32 | NUR ---
RECEIVED CALL FROM KATHERINE JESUS [phone]. UPDATES GIVEN TO HER
--- NOTE | 2022-11-11 23:05 | NUR ---
HOOKED ANOTHER PROPOFOL DRIP, RUNNING AT 35mcg/kg/min.
[2022-11-12] VITALS (12 sets, daily range): BP systolic 113–156; BP diastolic 47–89
[2022-11-12] MEDS ORDERED: PHENYTOIN SODIUM IV 100 MG/2ML VIAL ONE ×3 (01:27→11:13)
[2022-11-12] MEDS: PHENYTOIN SODIUM IV 100 MG/2ML VIAL IV SCH ×3 (01:30→12:26)
--- NOTE | 2022-11-12 02:18 | NUR ---
POSITIONED PATIENT COMFORTABLY
--- NOTE | 2022-11-12 03:07 | NUR ---
SUCTION SECRETIONS DONE. PATIENT HAS COUGH REFLEX DURING SUCTIONING
[2022-11-12] MEDS ORDERED: PROPOFOL 100 ML ONE ×2 (03:47→08:01)
[2022-11-12] MEDS: PROPOFOL 100 ML IV PRN (03:51)
--- NOTE | 2022-11-12 05:47 | NUR ---
POSITIONED COMFORTABLY. FLUSHING DONE TO RIGHT HAND IV CANNULA
--- NOTE | 2022-11-12 07:40 | NUR ---
XRAY DONE BY TECH AT BEDSIDE
[2022-11-12] MEDS ORDERED: ACETAMINOPHEN 650 MG/SUPP.RECT RC ONE ×2 (07:56→08:00)
--- NOTE | 2022-11-12 07:57 | NUR ---
ORAL CARE DONE TO THE PT
--- NOTE | 2022-11-12 08:17 | NUR ---
called LANCE Jacob - counseling case manager - case presented - needs HLOC transfer The patient is a [facility] patient - Cecil RN will follow up with Austin JESUS at 1000 am.
--- NOTE | 2022-11-12 08:30 | NUR ---
PT IN BED SEDATED. AM CARE AND BED BATH GIVEN LINENS CHANGED. 100.7 TEMPRATURE ASSESSED RECTAL TYLENOL GIVEN. SACRAL DTI NOTED ON ASSESSMENT. Addendum: 11/12/22 at 0833 by KEIRY DTI MEASURES APPROXIMATELY 2'', DARK PURPLE IN COLOR
[2022-11-12] MEDS ORDERED: LEVETIRACETAM SOL (5 ML) 100 MG/ML UDC ONE ×2 (08:49→08:50)
[2022-11-12 08:50] LABS: BASOPHILS % (AUTO) 0.1 % (0.0-2.0); EOSINOPHILS % (AUTO) 0.1 % (0.0-6.0); HEMATOCRIT 41 % (39-51); HEMOGLOBIN 13.5 g/dL (13.5-17.5); LYMPHOCYTES # (AUTO) 0.6 K/uL (0.8-4.8); LYMPHOCYTES % (AUTO) 2.9 % (20.0-44.0); MEAN CORPUSCULAR HGB CONC 33 g/dl (31.0-36.0); MEAN CORPUSCULAR VOLUME 91 fL (80-96); MONOCYTES # (AUTO) 2.7 K/uL (0.1-1.30); MONOCYTES % (AUTO) 13.3 % (2.0-12.0); NEUTROPHILS # (AUTO) 16.8 K/uL (1.8-8.9); NEUTROPHILS % (AUTO) 83.6 % (43.0-81.0); PLATELET COUNT (AUTO) 200 K/uL (150-450); RED BLOOD CELL COUNT(AUTO) 4.56 MIL/uL (4.5-6.0); WHITE BLOOD COUNT (AUTO) 20.1 K/uL (4.3-11.0)
[2022-11-12 09:00] LABS: CALCIUM, SERUM 8.6 mg/dL (8.5-10.1); POTASSIUM 4.1 mmol/L (3.5-5.1)
[2022-11-12] MEDS: LEVETIRACETAM SOL (5 ML) 100 MG/ML UDC GT SCH ×2 (09:00→17:51)
[2022-11-12 09:06] LABS: ALBUMIN 2.6 g/dL (3.4-5.0); BILIRUBIN,DIRECT 0.2 mg/dL (0.0-0.2); BILIRUBIN,TOTAL 0.4 mg/dL (0.2-1.0); TOTAL PROTEIN, SERUM 6.9 g/dL (6.4-8.2)
--- NOTE | 2022-11-12 09:09 | NUR ---
PT'S PROPOFOL 35 mcg/kg/min decreased to 15 mcg/kg/min as requested by MD.
--- NOTE | 2022-11-12 09:26 | NUR ---
PT'S PROPOFOL DRIP DISCONTINUED REQUESTED BY .
[2022-11-12] MEDS: IV NS 0.9% 1,000 ML IV PRN (09:28)
--- NOTE | 2022-11-12 09:42 | NUR ---
PROPOFOL WAS HELD PT BEGAN TO WAKE UP OPEN EYES AND FOLLOW DIRECTIONS. OPENS EYES WHEN PROMPTED AND IS ABLE TO SQUEZZE RIGHT HAND NOT ABLE TO MOVE OR USE LEFT HAND Addendum: 11/12/22 at 0957 by KEIRY MD PAUL
--- NOTE | 2022-11-12 09:43 | NUR ---
RT AT BEDSIDE CHANGED THE [facility] VENT SETTING TO SIMV 4, PS 15, PEEP 5, ABG 1 HOUR REQUESTED BY .
--- NOTE | 2022-11-12 09:50 | NUR ---
URINE SPECIMEN COLLECTED AND SENT LAB.
[2022-11-12] MEDS ORDERED: LEVOFLOXACIN 750 MG /D5W 150ML PIGGYBACK IV ONE (11:00)
[2022-11-12] MEDS ORDERED: IV NS 0.9% 1,000 ML BAG IV ONE (11:00)
[2022-11-12 11:07] LABS: ABG BASE EXCESS -0.7 mmol/L; ABG PCO2 44.7 mmHg (35.0-45.0); ABG PH 7.364 (7.350-7.450); ABG PO2 108.6 mmHg (75.0-100.0); COHb 0.3 % (0.5-1.5); MetHb 0.3 % (0.0-1.5); O2Hb 97.1 % (94.0-97.0); PEEP,BG 5 cm H2O; SITE, ABG Left Radial; VENT MODE, BG SIMV 40% PS15
[2022-11-12] MEDS ORDERED: LEVOFLOXACIN 750 MG /D5W 150ML 150 ML IV ONE (11:16)
[2022-11-12 11:20] LABS: BILIRUBIN,URINE 1+ (NEGATIVE); COLOR,URINE YELLOW (YELLOW); LEUKOCYTE ESTERASE ,URINE 1+ (NEGATIVE); NITRITE, URINE NEGATIVE (NEGATIVE); PH,URINE 5.5 (5.0-8.0); PROTEIN,URINE 1+ mg/dl (NEGATIVE); UGLUCOSE NEGATIVE (NEGATIVE); UROBILINOGEN,URINE 0.2 EU/dL (0.2)
[2022-11-12 11:46] LABS: BACTERIA,URINE Few /HPF (None Seen); SQUAMOUS EPITHELIAL CELL,UR Rare /HPF (None Seen); WBC,URINE 21-50 /HPF (0-3)
--- NOTE | 2022-11-12 12:35 | NUR ---
PT EXTUBATED AND AWAKE ABLE TO FOLLOW COMMANDS BREATHING IS UNLABORED 95% O2 SAT
--- NOTE | 2022-11-12 12:44 | NUR ---
RT Pt extubated at 1235 per MD Peleg phone order post ABG and weaning trial. RN at bedside. Pt placed on 3 LPM via NC post extubation. Pt awake and responsive. No SOB noted at this time. Will continue to monitor.
--- NOTE | 2022-11-12 13:42 | NUR ---
GOT BED 261 ADMITTING INFORMED.
--- NOTE | 2022-11-12 14:20 | NUR ---
PRUNER AT BED SIDE
--- NOTE | 2022-11-12 15:05 | NUR ---
REPORT GIVEN TO GREGORY LUCAS FOR BHAKTI
--- NOTE | 2022-11-12 15:40 | NUR ---
PT TAKEN TO ICU VIA ISABELLA WITH MYSELF AND ANOTHER RN
[2022-11-12] MEDS: IV D5/ 0.9% NACL 1,000 ML IV SCH (17:21)
[2022-11-12 17:28] LABS: BASOPHILS # (AUTO) 0.1 K/uL (0.0-0.2); BASOPHILS % (AUTO) 0.4 % (0.0-2.0); EOSINOPHILS % (AUTO) 0.1 % (0.0-6.0); HEMATOCRIT 44 % (39-51); HEMOGLOBIN 13.8 g/dL (13.5-17.5); LYMPHOCYTES # (AUTO) 0.6 K/uL (0.8-4.8); LYMPHOCYTES % (AUTO) 3.3 % (20.0-44.0); MEAN CORPUSCULAR HGB CONC 32 g/dl (31.0-36.0); MEAN CORPUSCULAR VOLUME 93 fL (80-96); MONOCYTES # (AUTO) 2.4 K/uL (0.1-1.30); NEUTROPHILS # (AUTO) 15.6 K/uL (1.8-8.9); NEUTROPHILS % (AUTO) 83.2 % (43.0-81.0); PLATELET COUNT (AUTO) 153 K/uL (150-450); RED BLOOD CELL COUNT(AUTO) 4.72 MIL/uL (4.5-6.0); WHITE BLOOD COUNT (AUTO) 18.8 K/uL (4.3-11.0)
[2022-11-12] MEDS: PHENYTOIN EXTENDED RELEASE 100 MG CAPSULE PO SCH (17:51)
[2022-11-12] MEDS: CEFTRIAXONE 1 G in IV D5W 50 ML IV SCH (18:03)
--- NOTE | 2022-11-12 18:27 | NUR ---
RN/ICU- ADMITTED THIS 61 Y/O MAKE FROM ER AT 1540 FROM ER PER ACLS PROTOCOL. DIAGNOSIS:RESPIRATORY FAILURE, SEIZURE. ROUTINE ICU ADMISSION CARE INITIATED. PT. AWAKE, ALERT, ORIENTED X3, SLOW TO RESPOND BUT APPROPRIATE. FINK WEAKLY EXCEPT LEFT UE WHICH IS FLACCID. EKG ATRIAL FIB W/ CVR ,BP-127/63, BREATHING SPONTANEOUSLY TO ROOM AIR WITH O2 SUPPORT OF 3L/NC, SATS.-98%. NOTED SOME SKIN ISSUES. REFER TO SKIN PROBLEM ASSESSMENT AND WOUND PHOTO FOR DETAILS. INITIAL TREATMENT GIVEN PER PROTOCOL. WOUND NURSE CONSULT DONE. BEDSIDE SWALLOW EVAL. DONE. PT. ABLE TO DRINK WATER, APPLE SAUCE AND PILLS TAKEN WITH NO PROBLEMS HOB AT 60 DEGREES AT ALL TIMES. ASPIRATION PRECAUTIONS IN EFFECT.PT. IS A FULL CODE. DENIES ANY PAIN OR DISCOMFORT. ADMISSION ORDERS RECEIVED FROM DR. BURT.
--- NOTE | 2022-11-12 19:45 | NUR ---
RN NOTE RECEIVED CALL FROM PRINCESS FROM [facility] INFORMING BED IS AVAILABLE FOR PT. WILL BE IN ICU 8WEST, ROOM 8324. PREFERS ONLY DAYTIME TRANSFERS; PREFERRED TO TRANSFER PT EARLIEST 0800, NO LATER THAN 1600 THEY HAVE RESOURCES AVAILABLE IN AM FOR CONTINUOUS EEG MONITORING. PROVIDED PHONE NUMBER AND ADDRESS [address] [place] [id number]
--- NOTE | 2022-11-12 20:48 | NUR ---
RITUAL CIRCUMCISER OPENING NOTE PT RECEIVED IN BED, AWAKE, A&O X3, LETHARGIC WITH DELAYED SPEECH. PT NOTED TO BE ON 3L NC WITH CURRENT O2SAT OF 97%; NOTED TO HAVE NON-PRODUCTIVE COUGH, NO SOB, NON-LABORED AND EQUAL BREATHING. PT ATTACHED TO BEDSIDE MONITOR, AFIB CONTROLLED WITH HR OF 106. QUINTANILLA INTACT AND PATENT, DRAINING CLEAR AND TEA-COLORED URINE. IV ACCESS ON LFA 18G AND RIGHT HAND 20G INTACT AND PATENT, FLUSHES EASILY WITH NO RESISTANCE; D5NS INFUSING AT 100 ML/HR. BED IN LOWEST POSITION, CALL LIGHT WITHIN REACH, SIDE RAILS UP X3. WILL CONTINUE TO MONITOR THROUGHOUT THE NIGHT.
[2022-11-12] MEDS ORDERED: FAMOTIDINE/PF INJ 20 MG/2 ML VIAL IV SCH (21:00)
[2022-11-12] MEDS: TAMSULOSIN 0.4 MG CAP.SR.24H NG SCH (21:17)
[2022-11-12] MEDS: METOPROLOL TARTRATE 25 MG TABLET NG SCH (21:19)
[2022-11-12] MEDS: HEPARIN SODIUM, PORCINE 5000 UNITS/1 ML VIAL SQ SCH (21:22)
--- NOTE | 2022-11-12 21:24 | NUR ---
RN NOTE CURRENT DIET ORDER IS NPO; ASKED DR. BURT FOR NEW DIET PT IS AWAKE, A&O X3, FOLLOWS SIMPLE COMMANDS AND HOW DAYSHIFT RN PERFORMED BEDSIDE SWALLOW SCREEN WITH NO COUGHING, GAGGING, CHOKING NOTED. RECEIVED ORDER FOR PUREED DIET.
[2022-11-13] VITALS (24 sets, daily range): BP systolic 116–151; BP diastolic 52–92
[2022-11-13] MEDS: IV D5/ 0.9% NACL 1,000 ML IV SCH (03:07)
[2022-11-13 04:56] LABS: ALBUMIN 2.3 g/dL (3.4-5.0); BILIRUBIN,TOTAL 0.3 mg/dL (0.2-1.0); CALCIUM, SERUM 8.6 mg/dL (8.5-10.1); CREATININE 1.2 mg/dL (0.6-1.3); POTASSIUM 3.7 mmol/L (3.5-5.1); TOTAL PROTEIN, SERUM 6.6 g/dL (6.4-8.2)
--- NOTE | 2022-11-13 06:35 | NUR ---
SUPERVISOR POULTRY PROCESSING CLOSING NOTE PT REMAINS IN BED, ASLEEP, EASILY AROUSABLE, A&O X3, CALM, COOPERATIVE, ABLE TO MAKE NEEDS KNOWN. NEURO STATUS REMAINS STABLE WITH NO SEIZURE ACTIVITY THROUGHOUT THE NIGHT. CONTINUES TO BE ON 3L NC WITH O2SAT RANGING FROM 92%-100%; CONTINUES TO HAVE NON-PRODUCTIVE COUGH; NO OTHER S/S OF RESP DISTRESS, NO SOB, NON-LABORED AND EQUAL BREATHING. ATTACHED TO BEDSIDE MONITOR, AFIB CONTROLLED WITH HR RANGING FROM 77-106 THROUGHOUT THE NIGHT. QUINTANILLA INTACT AND PATENT, DRAINING CLEAR AND TEA-COLORED URINE. RIGHT HAND 20G AND LFA 18G INTACT AND PATENT WITH D5NS INFUSING AT 100 ML/HR. ALL DUE MEDS ADMINISTERED DURING THE NIGHT. BED IN LOWEST POSITION, CALL LIGHT WITHIN REACH, SIDE RAILS UP X3. WILL ENDORSE TO DAYSHIFT NURSE TO CONTINUE CARE.
--- NOTE | 2022-11-13 06:51 | NUR ---
RN NOTE RECEIVED TEXT FROM DR. BURT TO HOLD TRANSFER TO [facility]. WILL CALL [facility]
--- NOTE | 2022-11-13 07:01 | NUR ---
RN NOTE CALLED SUMAN LUCAS FROM [facility] UPDATING THAT TRANSFER WILL BE ON HOLD D/T NEUROLOGIST (DR. MAHMOOD) IS AVAILABLE TO COME AND ASSESS PT.
[2022-11-13 07:33] LABS: PHENYTOIN (DILANTIN) 7.1 ug/ml (10.0-20.0)
[2022-11-13] MEDS: LEVETIRACETAM SOL (5 ML) 100 MG/ML UDC GT SCH (08:25)
[2022-11-13] MEDS: METOPROLOL TARTRATE 25 MG TABLET NG SCH ×2 (08:28→20:36)
[2022-11-13] MEDS: AMLODIPINE BESYLATE 10 MG TABLET NG SCH (08:28)
[2022-11-13] MEDS: chlorproMAZINE HCL 25 MG TABLET PO SCH (08:32)
[2022-11-13] MEDS: FAMOTIDINE (20 MG) 20 MG TABLET PO SCH (09:04)
[2022-11-13] MEDS: HEPARIN SODIUM, PORCINE 5000 UNITS/1 ML VIAL SQ SCH ×2 (09:05→20:39)
--- NOTE | 2022-11-13 09:52 | NUR ---
WOUND CARE CONSULT: PT PRESENTS WITH SACRAL DEEP TISSUE INJURY WHICH IS INTACT AND EXTENDS TO BUTTOCKS, PRESENT ON ADMISSION. PT ALSO NOTED TO HAVE LEFT LOWER LEG DRY SCAB AND DISCOLORATION/DUSKY COLOR TO LEFT FOOT AND TOES WITH DRY ABRASIONS TO LEFT TOES, ALSO PRESENT ON ADMISSION. PT STATES THAT HE FELL ONTO HIS BUTTOCKS AT HOME, PRIOR TO ADMISSION. RECOMMENDATIONS MADE FOR SKIN PROTECTION. DISCUSSED WITH NURSING STAFF. RN TO DISCUSS LEFT FOOT DUSKY COLOR WITH PMD. FIRST STEP LOW AIRLOSS MATTRESS IS ON ORDER. MD IN AGREEMENT WITH PLAN OF CARE. Addendum: 11/13/22 at 0955 by SHIRA FINCH WNDNU Amended: Links added.
[2022-11-13] MEDS: LACOSAMIDE 50 MG TABLET PO SCH ×2 (10:24→20:36)
[2022-11-13] MEDS ORDERED: IV D5/ 0.9% NACL 1,000 ML IV PRN (10:56)
[2022-11-13] MEDS ORDERED: GADOTERATE MEGLUMINE 10 MMOL/20 ML VIAL IV ONE (16:12)
[2022-11-13] MEDS ORDERED: LEVETIRACETAM SOL (5 ML) 100 MG/ML UDC PO SCH (17:00)
[2022-11-13] MEDS: CEFTRIAXONE 1 G in IV D5W 50 ML IV SCH (17:06)
[2022-11-13] MEDS: PHENYTOIN EXTENDED RELEASE 100 MG CAPSULE PO SCH ×3 (17:06→17:40)
[2022-11-13] MEDS: PROSOURCE / PROSTAT (PYXIS) 30 ML UDC PO SCH (17:07)
--- NOTE | 2022-11-13 21:25 | NUR ---
STUDIO COORDINATOR OPENING NOTE PT RECEIVED IN BED, AWAKE, A&O X4, CALM, COOPERATIVE, SPEECH IMPROVED, ABLE TO OPEN BOTH EYES. PT ON 3L NC WITH CURRENT O2SAT OF 99%; NOTED TO HAVE COUGH; NO OTHER S/S OF RESP DISTRESS, NO SOB, NON-LABORED AND EQUAL BREATHING. PT ATTACHED TO BEDSIDE MONITOR, AFIB CONTROLLED WITH CURRENT HR OF 89. QUINTANILLA INTACT AND PATENT, DRAINING CLEAR AND TEA-COLORED URINE. IV ACCESS ON RIGHT HAND 20G AND LFA 18G, INTACT AND PATENT WITH D5NS INFUSING AT 50 ML/HR. BED IN LOWEST POSITION, CALL LIGHT WITHIN REACH, SIDE RAILS UP X3. WILL CONTINUE TO MONITOR THROUGHOUT THE NIGHT.
[2022-11-13] MEDS: TAMSULOSIN 0.4 MG CAP.SR.24H NG SCH (21:44)
[2022-11-14] VITALS (15 sets, daily range): BP systolic 102–155; BP diastolic 48–96
[2022-11-14 03:41] LABS: BASOPHILS % (AUTO) 0.4 % (0.0-2.0); EOSINOPHILS % (AUTO) 1.2 % (0.0-6.0); HEMATOCRIT 45 % (39-51); HEMOGLOBIN 14.8 g/dL (13.5-17.5); LYMPHOCYTES # (AUTO) 0.7 K/uL (0.8-4.8); LYMPHOCYTES % (AUTO) 7.2 % (20.0-44.0); MEAN CORPUSCULAR HGB CONC 33 g/dl (31.0-36.0); MEAN CORPUSCULAR VOLUME 92 fL (80-96); MONOCYTES # (AUTO) 1.4 K/uL (0.1-1.30); MONOCYTES % (AUTO) 14.6 % (2.0-12.0); NEUTROPHILS # (AUTO) 7.2 K/uL (1.8-8.9); NEUTROPHILS % (AUTO) 76.6 % (43.0-81.0); PLATELET COUNT (AUTO) 183 K/uL (150-450); RED BLOOD CELL COUNT(AUTO) 4.93 MIL/uL (4.5-6.0); WHITE BLOOD COUNT (AUTO) 9.4 K/uL (4.3-11.0)
[2022-11-14 03:49] LABS: CALCIUM, SERUM 8.8 mg/dL (8.5-10.1); CREATININE 0.9 mg/dL (0.6-1.3); POTASSIUM 3.5 mmol/L (3.5-5.1)
--- NOTE | 2022-11-14 06:46 | NUR ---
HEDGE FUND MANAGER CLOSING NOTE PT REMAINS IN BED, AWAKE, A&O X4, CALM, COOPERATIVE; NO SEIZURES/FEVERS NOTED THROUGHOUT THE NIGHT. CONTINUES TO BE ON 3L NC WITH O2SAT RANGING FROM 94%-100% THROUGHOUT THE NIGHT; CONTINUES TO HAVE NON-PRODUCTIVE COUGH; NO S/S OF RESP DISTRESS. ATTACHED TO BEDSIDE MONITOR, AFIB CONTROLLED WITH HR RANGING FROM 74-93. QUINTANILLA INTACT AND PATENT, DRAINING CLEAR AND TEA-COLORED URINE. IV ACCESS ON RIGHT HAND 20G AND LFA 18G INTACT AND PATENT, FLUSHES EASILY WITH NO RESISTANCE. SACRAL AND BUTTOCKS DTI CLEANSED AND NEW MEPILEX APPLIED; WOUND STABLE WITH NO CHANGES. ALL DUE MEDS ADMINISTERED DURING THE NIGHT. BED IN LOWEST POSITION, CALL LIGHT WITHIN REACH, SIDE RAILS UP X3. WILL ENDORSE TO DAYSHIFT NURSE TO CONTINUE CARE.
--- NOTE | 2022-11-14 07:10 | NUR ---
MACHINE WOODWORKING SANDER OPENING NOTE: RECEIVED PT. IN BED, AWAKE, AOX4. TACHYPNEIC AT 23 BREATHS/MIN AT THIS TIME. PLUG ASSEMBLER READS AFIB CONTROLLED AT THIS TIME. SKIN ISSUES NOTED, WILL DO WOUND TREATMENT ORDERED. ON QUINTANILLA CATHETER, WITH YELLOW CLOUDY URINE NOTED. IV ACCESS ON L FA #18G, PATENT AND SALINE LOCKED. IV SITE DRESSING C/D/I WITH NO S/S OF INFILTRATION. SAFETY MEASURES IN PLACE: BED IN LOWEST AND LOCKED POSITION, HOB ELEVATED AT 40 DEGREES, BED ALARM ON, CALL LIGHT WITHIN REACH, SIDE RAILS UP X2. WILL TURN AND REPOSITION IN BED AT LEAST Q2H. WILL CONTINUE TO MONITOR PT. FOR ANY CHANGES.
[2022-11-14] MEDS: chlorproMAZINE HCL 25 MG TABLET PO SCH (09:17)
[2022-11-14] MEDS: PROSOURCE / PROSTAT (PYXIS) 30 ML UDC PO SCH ×3 (09:17→17:40)
[2022-11-14] MEDS: LEVETIRACETAM SOL (5 ML) 100 MG/ML UDC PO SCH ×2 (09:18→17:40)
[2022-11-14] MEDS: METOPROLOL TARTRATE 25 MG TABLET PO SCH ×2 (09:18→21:03)
[2022-11-14] MEDS: FAMOTIDINE (20 MG) 20 MG TABLET PO SCH (09:19)
[2022-11-14] MEDS: ASPIRIN 81 MG TAB.CHEW PO SCH (09:19)
[2022-11-14] MEDS: LISINOPRIL (20MG) 20 MG TABLET PO SCH (09:19)
[2022-11-14] MEDS: PHENYTOIN EXTENDED RELEASE 100 MG CAPSULE PO SCH ×2 (09:20→17:40)
[2022-11-14] MEDS: LACOSAMIDE 50 MG TABLET PO SCH ×2 (09:20→21:03)
[2022-11-14] MEDS: AMLODIPINE BESYLATE 10 MG TABLET PO SCH (09:20)
[2022-11-14] MEDS: HEPARIN SODIUM, PORCINE 5000 UNITS/1 ML VIAL SQ SCH ×2 (09:21→21:05)
--- NOTE | 2022-11-14 09:30 | NUR ---
FISH CAKE MAKER NOTE: PT. OFF O2 VIA NASAL CANNULA. SATURATING 94-95% ON ROOM AIR. WILL CONTINUE TO MONITOR O2 SAT.
--- NOTE | 2022-11-14 10:00 | NUR ---
SUPERVISOR PLASTIC SHEETS NOTE: PT EVAL DONE AT BEDSIDE, PLEASE SEE PT ASSESSMENT. REFERRED TO CASE MANAGEMENT PHYSICAL THERAPIST RECOMMENDS PHYSICAL THERAPY SERVICES POST DISCHARGE.
--- NOTE | 2022-11-14 12:10 | NUR ---
RAILROAD TRACK INSPECTOR NOTE: TRANSFERRED PT TO TELE ROOM 104 VIA HOSPITAL BED. RECEIVED REPORT BY LANCE ROACH. PT AWAKE, AOX4. ON RA, NO S/S OF RESPIRATORY DISTRESS. NO COMPLAINTS OF PAIN/DISCOMFORT. TISSUE COORDINATOR READS AFIB CONTROLLED AT THIS TIME. WOUND TREATMENT DONE ORDERED. QUINTANILLA CATHETER, DRAINING YELLOW CLOUDY URINE. IV ACCESS ON L FA #18G, PATENT AND SALINE LOCKED. IV SITE DRESSING C/D/I WITH NO S/S OF INFILTRATION. SAFETY MEASURES MAINTAINED: BED IN LOWEST AND LOCKED POSITION, HOB ELEVATED AT 40 DEGREES, BED ALARM ON, CALL LIGHT WITHIN REACH, SIDE RAILS UP X2. ALL MEDICATIONS AND BELONGINGS ACCOUNTED FOR. WILL CONTINUE TO MONITOR.
--- NOTE | 2022-11-14 12:24 | NUR ---
CNC OPERATOR MACHINISTLOFTER NOTE: TRANSFERRED PT TO TELE ROOM 104 VIA HOSPITAL BED. REPORT GIVEN AT BEDSIDE TO [employer] ENOC. PT. REMAINS, AWAKE, AOX4. ON RA, NO S/S OF REPSIRATORY DISTRESS. NO COMPLAINTS OF PAIN/DISCOMFORT. METAL TILE SETTER READS AFIB CONTROLLED AT THIS TIME. WOUND TREATMENT DONE ORDERED. ON QUINTANILLA CATHETER, DRAINED 400 ML YELLOW CLOUDY URINE SO FAR. IV ACCESS ON L FA #18G, PATENT AND SALINE LOCKED. IV SITE DRESSING C/D/I WITH NO S/S OF INFILTRATION. SAFETY MEASURES MAINTAINED: BED IN LOWEST AND LOCKED POSITION, HOB ELEVATED AT 40 DEGREES, BED ALARM ON, CALL LIGHT WITHIN REACH, SIDE RAILS UP X2. TURNED AND REPOSITIONED IN BED AT LEAST Q2H. PT. CHART, MEDICATIONS AND BELONGINGS HANDED OVER TO ENOC LUCAS AT BEDSIDE. ENDORSED CONTINUITY OF CARE.
--- NOTE | 2022-11-14 20:31 | NUR ---
RN CLOSING NOTE: PATIENT IN BED. AOX4. BREATHING ON RA 02 SAT OF 100%. NO S/S OF RESPIRATORY DISTRESS. NO COMPLAINTS OF PAIN/DISCOMFORT. DOMINATRIX READS AFIB CONTROLLED AT THIS TIME. WOUND TREATMENT DONE ORDERED. QUINTANILLA CATHETER, DRAINING YELLOW CLOUDY URINE. IV ACCESS ON L FA #18G, PATENT AND SALINE LOCKED. IV SITE DRESSING C/D/I WITH NO S/S OF INFILTRATION. SAFETY MEASURES MAINTAINED: BED IN LOWEST AND LOCKED POSITION, HOB ELEVATED AT 40 DEGREES, BED ALARM ON, CALL LIGHT WITHIN REACH, SIDE RAILS UP X2. WILL ENDORSE CONTINUITY OF CARE TO NIGHTSHIFT.
--- NOTE | 2022-11-14 20:40 | NUR ---
BACK TENDER PAPER MACHINE OPENING NOTE PT RECEIVED IN BED, AWAKE, A&O X4, CALM, COOPERATIVE. PT ON RA WITH CURRENT O2SAT OF 94%; PT DENIES ANY SOB; NOTED TO HAVE COUGH WITH NO OTHER S/S OF RESP DISTRESS, NON-LABORED AND EQUAL BREATHING. PT ATTACHED TO EXTERNAL MONITOR, AFIB CONTROLLED WITH CURRENT HR OF 90. QUINTANILLA INTACT AND PATENT, DRAINING CLEAR AND TEA-COLORED URINE. IV ACCESS ON LFA 18G, INTACT AND PATENT, FLUSHES EASILY WITH NO RESISTANCE. BED IN LOWEST POSITION, CALL LIGHT WITHIN REACH, SIDE RAILS UP X3, HOB ELEVATED AT 40 DEGREES. WILL CONTINUE TO MONITOR THROUGHOUT THE NIGHT.
[2022-11-14] MEDS: TAMSULOSIN 0.4 MG CAP.SR.24H PO SCH (21:04)
[2022-11-14] MEDS: LINEZOLID 600 MG TABLET PO SCH (21:04)
[2022-11-15] VITALS: BP 151/90
[2022-11-15 04:00] VITALS: BP 156/88
--- NOTE | 2022-11-15 06:44 | NUR ---
AUTOMOBILE BRAKES BONDER CLOSING NOTE PT REMAINS IN BED, AWAKE, A&O X4, CALM AND COOPERATIVE WITH PERIODS OF RESTLESSNESS AND WOULD FIND PT PUTTING LEGS OVER RAILING. REMAINS ON ROOM AIR WITH O2SAT RANGING FROM 94%-99%; CONTINUES TO HAVE COUGH WITH NO OTHER S/S OF RESP DISTRESS. ATTACHED TO EXTERNAL MONITOR, AFIB CONTROLLED WITH HR RANGING FROM 80-90. SACRAL DTI CLEANSED AND NEW DRESSING APPLIED. LFA 18G INTACT AND PATENT, FLUSHES EASILY WITH NO RESISTANCE; NO MEDS/FLUIDS INFUSING THROUGH. ALL DUE MEDS ADMINISTERED DURING THE NIGHT. BED IN LOWEST POSITION, CALL LIGHT WITHIN REACH, SIDE RAILS UP X3. HOB ELEVATED AT 40 DEGREES. WILL ENDORSE TO DAYSHIFT NURSE TO CONTINUE CARE.
--- NOTE | 2022-11-15 07:00 | NUR ---
MARBLE CLEANER OPENING NOTE: RECEIVED PT. IN BED, AWAKE, A&O X4, NO COMPLAINTS OF PAIN/DISCOMFORT AT THIS TIME. PT ON RA, NO S/S OF RESPIRATORY DISTRESS. BREAD STACKER READS AFIB CONTROLLED. QUINTANILLA INTACT AND PATENT, DRAINING CLEAR XU URINE. MULTIPLE SKIN ISSUES NOTED, WILL DO WOUND TREATMENT ORDERED. IV ACCESS ON LFA 18G, INTACT AND PATENT, SALINE LOCKED. SAFETY MEASURES IN PLACE: BED IN LOWEST & LOCKED POSITION, CALL LIGHT WITHIN REACH, SIDE RAILS UP X3, HOB ELEVATED AT 40 DEGREES, CALL LIGHT WITHIN REACH, BED ALARM ON. WILL CONTINUE TO MONITOR PT. FOR ANY CHANGES.
[2022-11-15 08:00] VITALS: BP 142/83
[2022-11-15] MEDS ORDERED: LACO100T2 PO (08:43)
[2022-11-15] MEDS ORDERED: ATOR20TA PO (08:43)
[2022-11-15] MEDS ORDERED: LEVE1000 PO (08:43)
[2022-11-15] MEDS ORDERED: PHEN100C4 PO (08:43)
[2022-11-15] MEDS: PROSOURCE / PROSTAT (PYXIS) 30 ML UDC PO SCH ×3 (09:15→16:38)
[2022-11-15] MEDS: HEPARIN SODIUM, PORCINE 5000 UNITS/1 ML VIAL SQ SCH ×2 (09:16→20:41)
[2022-11-15] MEDS: PHENYTOIN EXTENDED RELEASE 100 MG CAPSULE PO SCH ×2 (09:17→16:39)
[2022-11-15] MEDS: LEVETIRACETAM SOL (5 ML) 100 MG/ML UDC PO SCH ×2 (09:17→16:39)
[2022-11-15] MEDS: METOPROLOL TARTRATE 25 MG TABLET PO SCH ×2 (09:17→20:39)
[2022-11-15] MEDS: ASPIRIN 81 MG TAB.CHEW PO SCH (09:17)
[2022-11-15] MEDS: LISINOPRIL (20MG) 20 MG TABLET PO SCH (09:17)
[2022-11-15] MEDS: LACOSAMIDE 50 MG TABLET PO SCH ×2 (09:18→20:41)
[2022-11-15] MEDS: FAMOTIDINE (20 MG) 20 MG TABLET PO SCH (09:18)
[2022-11-15] MEDS: AMLODIPINE BESYLATE 10 MG TABLET PO SCH (09:18)
[2022-11-15] MEDS: chlorproMAZINE HCL 25 MG TABLET PO SCH (09:18)
[2022-11-15] MEDS: LINEZOLID 600 MG TABLET PO SCH ×2 (09:18→20:41)
[2022-11-15 12:00] VITALS: BP 148/89
[2022-11-15 16:00] VITALS: BP 135/86
--- NOTE | 2022-11-15 19:00 | NUR ---
POLYMERIZATION SUPERVISOR CLOSING NOTE: PT. REMAINS IN BED, AWAKE, A&O X4, NO COMPLAINTS OF PAIN/DISCOMFORT AT THIS TIME. PT ON RA, NO S/S OF RESPIRATORY DISTRESS. PRESSURE CONTROLLER READS AFIB CONTROLLED THIS SHIFT. QUINTANILLA INTACT AND PATENT, DRAINED 950 ML CLEAR XU URINE THIS SHIFT. WOUND TREATMENT DONE ORDERED. IV ACCESS ON LFA 18G, INTACT AND PATENT, SALINE LOCKED. SAFETY MEASURES MAINTAINED: BED IN LOWEST & LOCKED POSITION, CALL LIGHT WITHIN REACH, SIDE RAILS UP X3, HOB ELEVATED AT 40 DEGREES, CALL LIGHT WITHIN REACH, BED ALARM ON. TURNED AND REPOSITIONED IN BED AT LEAST Q2H. ENDORSED CONTINUITY OF CARE TO COATER BRAKE LININGS RN.
--- NOTE | 2022-11-15 19:00 | NUR ---
RN NOTE PATIENT IN BED, ON SEMI SHANE'S, AO X 4, IN NO ACUTE DISTRESS,BREATHING UNLABORED, SATURATION AT 96% ON ROOM AIR, SR ON THE Addendum: 11/15/22 at 2227 by YOLANDA SHOEMAKER RN RN NOTE PATIENT IN BED, ON SEMI SHANE'S, AO X 4, IN NO ACUTE DISTRESS,BREATHING UNLABORED, SATURATION AT 96% ON ROOM AIR, AFIB ON THE MONITOR, HR IS 87. IV LINE AT LFA 20G PATENT AND FLUSHING WELL, NO S/S OF INFECTION OR INFILTRATION, SALINE LOCKED. QUINTANILLA CATH DRAINING TO A CLEAR, YELLOW OUTPUT. SAFETY AND SEZIRE PRECAUTIONS IN PLACE, WILL CONT TO MONITOR. AWAITING MACHINE SHOP APPRENTICE FOR TRANSFER TO [facility]. SCHEDULED MACHINE SHOP APPRENTICE TIME IS 2100.
--- NOTE | 2022-11-15 20:20 | NUR ---
RN NOTE TRANSPORT ARRIVED AT UNIT, HOWEVER, PATIENT REFUSES TO GO AND STATES [place] [facility]PH[facility] CALL TO [facility] AT [phone], [facility] CALLED [facility] [phone], SPOKE TO REMA, STATED SHE WILL BACK AND WILL SEE WHAT SHE CAN DO.
--- NOTE | 2022-11-15 20:30 | NUR ---
RN NOTE PT AGREED HE WILL GO TO [facility] FOR TONIGHT AND WILL CALL DRESS CUTTER IN THE MORNING. JAVIER ALFARO WAS MADE AWARE. SHE SAID TO CALL [facility] AT [phone] IN AM. PATIENT WAS MADE AWARE
[2022-11-15 20:39] VITALS: BP 127/95
--- NOTE | 2022-11-15 20:40 | NUR ---
RN NOTE PT WAS TRANSFERRED TO [facility] IN A GURNEY ACCOMPANIED BY 3 BOAT HAND, IN STABLE CONDITION. REPORT GIVEN TO ANGELIA LUCAS, PT WILL GO TO ROOM 39A. IV LINE REMOVED ASEPTICALLY. DISCHARGE PACKET GIVEN TO EMT.
[2022-11-15] MEDS: TAMSULOSIN 0.4 MG CAP.SR.24H PO SCH (20:41)
== END 2022-11-15 21:26 | DRG 53 ==
LOC: ER 09:17 → ICU 11-12 14:22 → TELE1 11-14 12:01
PROVIDERS: ADMIT Internal Medicine; ATTEND Internal Medicine
PROC: 5A1945Z Respiratory Ventilation, 24-96 Consecutive Hours (ICD-10-PCS; principal; 2022-11-12)
PROC: 0BH17EZ Insertion of Endotracheal Airway into Trachea, Via Natural or Artificial Opening (ICD-10-PCS; 2022-11-12)
DX: G40.901 Epilepsy, unspecified, not intractable, with status epilepticus (principal); N17.0 Acute kidney failure with tubular necrosis; J96.00 Acute respiratory failure, unspecified whether with hypoxia or hypercapnia; I48.20 Chronic atrial fibrillation, unspecified; I69.354 Hemiplegia and hemiparesis following cerebral infarction affecting left non-dominant side; Z88.0 Allergy status to penicillin; Z79.82 Long term (current) use of aspirin; Z79.899 Other long term (current) drug therapy; I10 Essential (primary) hypertension; E78.5 Hyperlipidemia, unspecified; B95.2 Enterococcus as the cause of diseases classified elsewhere; N39.0 Urinary tract infection, site not specified; G93.89 Other specified disorders of brain; N40.0 Benign prostatic hyperplasia without lower urinary tract symptoms; W19.XXXA Unspecified fall, initial encounter; Y92.9 Unspecified place or not applicable; Z91.81 History of falling
CPT/HCPCS: 31720; 36415; 36600; 70450-TC; 70553-TC; 71045-TC; 76770-TC; 80048-TC; 80053-TC; 80076-TC; 80177; 80185-TC; 81001; 82550-TC; 82553; 82803-TC; 83605-TC; 83735-TC; 84100-TC; 84484-TC; 85025-TC; 85730-TC; 87040-TC; 87081-TC; 87086-TC; 93307-TC; 94003-TC; 94799-TC; 95819-TC; 97112-TC; 97116-TC; 97530-TC; A9575; C9803; G0378; G0480; J0696; J1165; J1644; J1953; J1956; J2060; J3490; J7030; J7042; J7060; Q0161; U0003

== ENCOUNTER 2023-06-14 06:38 | Inpatient (IN) | payer OTHER ==
[~2023-06-14] VITALS: Ht 185.4 cm; Wt 90.7 kg
[~2023-06-14 06:38] MED LIST changes: +ATOR20TA PO; +LACO100T2 PO; +LEVE1000 PO; -LEVE750T10 PO
[2023-06-14 07:55] LABS: BASOPHILS # (AUTO) 0.1 K/uL (0.0-0.2); BASOPHILS % (AUTO) 0.7 % (0.0-2.0); HEMATOCRIT 43 % (39-51); HEMOGLOBIN 14.4 g/dL (13.5-17.5); LYMPHOCYTES # (AUTO) 0.1 K/uL (0.8-4.8); LYMPHOCYTES % (AUTO) 0.8 % (20.0-44.0); MEAN CORPUSCULAR HEMOGLOBIN 30 PG (26.0-33.0); MEAN CORPUSCULAR HGB CONC 33 g/dl (31.0-36.0); MEAN CORPUSCULAR VOLUME 91 fL (80-96); MONOCYTES # (AUTO) 0.5 K/uL (0.1-1.30); MONOCYTES % (AUTO) 3.2 % (2.0-12.0); NEUTROPHILS % (AUTO) 95.3 % (43.0-81.0); PLATELET COUNT (AUTO) 161 K/uL (150-450); RED BLOOD CELL COUNT(AUTO) 4.77 MIL/uL (4.5-6.0); RED CELL DISTRIBUTION WIDTH 13.9 % (11.5-15.0); WHITE BLOOD COUNT (AUTO) 16.8 K/uL (4.3-11.0)
[2023-06-14] MEDS ORDERED: METOPROLOL TARTRATE INJ 5 MG/5 ML AMPUL ONE (08:07)
[2023-06-14 08:12] LABS: CARBON DIOXIDE 24 mmol/L (21-32); CHLORIDE 100 mmol/L (98-107); CREATININE 2.8 mg/dL (0.6-1.3); GLUCOSE 111 mg/dL (74-106); POTASSIUM 3.5 mmol/L (3.5-5.1); SODIUM SERUM 137 mmol/L (136-145); UREA NITROGEN, BLOOD 44 mg/dL (7-18)
[2023-06-14] MEDS: METOPROLOL TARTRATE INJ 5 MG/5 ML AMPUL IVP PRN (08:17)
[2023-06-14 08:19] LABS: LACTIC ACID 1.3 mmol/L (0.4-2.0)
[2023-06-14 08:28] LABS: ALANINE AMINOTRANSFERASE 20 U/L (12-78); ALBUMIN 3.4 g/dL (3.4-5.0); ALKALINE PHOSPHATASE 78 U/L (46-116); ASPARTATE AMINOTRANSFERASE 32 U/L (15-37); BILIRUBIN,DIRECT 0.1 mg/dL (0.0-0.2); BILIRUBIN,TOTAL 0.6 mg/dL (0.2-1.0); NT-PRO BNP 3582 pg/mL (0-125); TOTAL PROTEIN, SERUM 7.2 g/dL (6.4-8.2)
[2023-06-14] MEDS ORDERED: IV NS 0.9% 1,000 ML BAG IV ONE (08:30)
[2023-06-14] MEDS ORDERED: CEFEPIME 1 GM in IV D5W 50 ML IV ONE (08:30)
[2023-06-14] MEDS ORDERED: ASPIRIN 81 MG TAB.CHEW PO ONE (08:30)
[2023-06-14] MEDS ORDERED: VANCOMYCIN 1 GM in IV D5W 250 ML IV ONE (08:30)
[2023-06-14] MEDS ORDERED: ASPIRIN 81 MG TAB.CHEW ONE (08:33)
[2023-06-14 08:45] LABS: INR 1.13 (0.91-1.10); PROTHROMBIN TIME 11.8 SECS (9.2-11.1)
[2023-06-14] MEDS ORDERED: METO25TA6 PO (09:37)
[2023-06-14] MEDS ORDERED: LACO100T2 PO (09:37)
[2023-06-14] MEDS ORDERED: PHEN100C12 PO (09:37)
[2023-06-14] MEDS ORDERED: LEVE750T10 PO (09:37)
[2023-06-14] MEDS ORDERED: SERT50TA12 PO (09:37)
[2023-06-14] MEDS ORDERED: APIX5TAB PO (09:37)
[2023-06-14 12:00] LABS: APPEARANCE,URINE SLIGHTLY CLOUDY (CLEAR); BILIRUBIN,URINE NEGATIVE (NEGATIVE); BLOOD, URINE 2+ Ery/uL (NEGATIVE); COLOR,URINE YELLOW (YELLOW); KETONES,URINE NEGATIVE (NEGATIVE); LEUKOCYTE ESTERASE ,URINE 3+ (NEGATIVE); NITRITE, URINE NEGATIVE (NEGATIVE); PROTEIN,URINE 2+ mg/dl (NEGATIVE); UGLUCOSE NEGATIVE (NEGATIVE); UROBILINOGEN,URINE 0.2 EU/dL (0.2)
[2023-06-14 12:02] LABS: ADD URINE CULTURE YES; BACTERIA,URINE Few /HPF (None Seen); SQUAMOUS EPITHELIAL CELL,UR Rare /HPF (None Seen)
[2023-06-14] MEDS ORDERED: LINEZOLID RTU BAG 600 MG in PREMIX 1 EA IV SCH (13:00)
[2023-06-14] MEDS: METOPROLOL TARTRATE 25 MG TABLET PO SCH ×2 (13:00→16:33)
[2023-06-14] MEDS ORDERED: ACETAMINOPHEN ES 500 MG TABLET PO PRN (13:00)
[2023-06-14] MEDS ORDERED: ONDANSETRON HCL/PF 4 MG/2 ML VIAL IV PRN (13:00)
[2023-06-14 14:00] VITALS: BP 144/84; TEMP 99.6; O2SAT 94
[2023-06-14] MEDS: CEFTRIAXONE 1 G in IV D5W 50 ML IV SCH (15:25)
[2023-06-14] MEDS: IV LR 1000 ML 1,000 ML IV PRN (15:25)
[2023-06-14 16:00] VITALS: BP 154/83; TEMP 99.5; O2SAT 95
[2023-06-14] MEDS: PHENYTOIN EXTENDED RELEASE 100 MG CAPSULE PO SCH (16:32)
[2023-06-14] MEDS: APIXABAN 5 MG TABLET PO SCH (16:34)
[2023-06-14] MEDS: LEVETIRACETAM (250 MG) 250 MG TABLET PO SCH (21:32)
[2023-06-14] MEDS: LACOSAMIDE 50 MG TABLET PO SCH (21:33)
[2023-06-15] VITALS: BP 132/91; TEMP 98.8; O2SAT 97
[2023-06-15 05:21] VITALS: BP 118/84; TEMP 98.4; O2SAT 95
[2023-06-15 07:24] LABS: BASOPHILS % (AUTO) 0.2 % (0.0-2.0); EOSINOPHILS # (AUTO) 0.1 K/uL (0.0-0.7); EOSINOPHILS % (AUTO) 0.9 % (0.0-6.0); HEMATOCRIT 38 % (39-51); HEMOGLOBIN 12.6 g/dL (13.5-17.5); LYMPHOCYTES # (AUTO) 0.3 K/uL (0.8-4.8); LYMPHOCYTES % (AUTO) 2.6 % (20.0-44.0); MEAN CORPUSCULAR HEMOGLOBIN 30 PG (26.0-33.0); MEAN CORPUSCULAR HGB CONC 33 g/dl (31.0-36.0); MEAN CORPUSCULAR VOLUME 92 fL (80-96); MONOCYTES # (AUTO) 1.4 K/uL (0.1-1.30); NEUTROPHILS % (AUTO) 85.3 % (43.0-81.0); PLATELET COUNT (AUTO) 98 K/uL (150-450); RED BLOOD CELL COUNT(AUTO) 4.14 MIL/uL (4.5-6.0); RED CELL DISTRIBUTION WIDTH 14.2 % (11.5-15.0); WHITE BLOOD COUNT (AUTO) 12.9 K/uL (4.3-11.0)
[2023-06-15 07:37] LABS: ALBUMIN 2.5 g/dL (3.4-5.0); BILIRUBIN,TOTAL 0.4 mg/dL (0.2-1.0); CALCIUM, SERUM 8.4 mg/dL (8.5-10.1); CREATININE 2.7 mg/dL (0.6-1.3); POTASSIUM 3.3 mmol/L (3.5-5.1); TOTAL PROTEIN, SERUM 5.8 g/dL (6.4-8.2)
[2023-06-15 07:43] LABS: LACTIC ACID 1.9 mmol/L (0.4-2.0)
[2023-06-15 08:00] VITALS: BP 152/89; TEMP 98.4; O2SAT 97
[2023-06-15] MEDS ORDERED: POTASSIUM CHLORIDE 20 MEQ TAB.PRT.SR PO ONE ×2 (09:00→12:00)
[2023-06-15] MEDS: ASPIRIN 81 MG TAB.CHEW PO SCH (10:58)
[2023-06-15] MEDS: PHENYTOIN EXTENDED RELEASE 100 MG CAPSULE PO SCH ×2 (10:59→17:08)
[2023-06-15] MEDS: METOPROLOL TARTRATE 25 MG TABLET PO SCH ×2 (10:59→17:10)
[2023-06-15] MEDS: LEVETIRACETAM (250 MG) 250 MG TABLET PO SCH ×2 (10:59→20:40)
[2023-06-15] MEDS: SERTRALINE HCL 50 MG TABLET PO SCH (11:00)
[2023-06-15] MEDS: LACOSAMIDE 50 MG TABLET PO SCH ×2 (11:00→20:40)
[2023-06-15] MEDS: APIXABAN 5 MG TABLET PO SCH ×2 (11:01→17:10)
[2023-06-15] MEDS: IV LR 1000 ML 1,000 ML IV PRN ×2 (11:36→23:30)
[2023-06-15] MEDS: CEFTRIAXONE 1 G in IV D5W 50 ML IV SCH (12:39)
[2023-06-15 16:00] VITALS: BP 155/102; TEMP 98.2; O2SAT 97
[2023-06-15 20:00] VITALS: BP 165/98; TEMP 98.2; O2SAT 95
[2023-06-15 23:45] VITALS: O2SAT 94
[2023-06-16] MEDS: METOPROLOL TARTRATE INJ 5 MG/5 ML AMPUL IVP PRN (00:56)
[2023-06-16 01:35] VITALS: BP 153/98
[2023-06-16 04:00] VITALS: BP 167/110; TEMP 97.8; O2SAT 97
[2023-06-16] MEDS: METOPROLOL TARTRATE 25 MG TABLET PO SCH ×2 (05:52→16:57)
[2023-06-16 08:00] VITALS: BP 181/97; TEMP 96.8; O2SAT 100
[2023-06-16 08:42] LABS: BASOPHILS % (AUTO) 0.1 % (0.0-2.0); EOSINOPHILS # (AUTO) 0.2 K/uL (0.0-0.7); HEMATOCRIT 39 % (39-51); HEMOGLOBIN 12.9 g/dL (13.5-17.5); LYMPHOCYTES # (AUTO) 0.4 K/uL (0.8-4.8); LYMPHOCYTES % (AUTO) 3.5 % (20.0-44.0); MEAN CORPUSCULAR HEMOGLOBIN 30 PG (26.0-33.0); MEAN CORPUSCULAR HGB CONC 33 g/dl (31.0-36.0); MEAN CORPUSCULAR VOLUME 91 fL (80-96); MONOCYTES # (AUTO) 1.6 K/uL (0.1-1.30); NEUTROPHILS # (AUTO) 8.7 K/uL (1.8-8.9); NEUTROPHILS % (AUTO) 79.4 % (43.0-81.0); PLATELET COUNT (AUTO) 126 K/uL (150-450); RED CELL DISTRIBUTION WIDTH 13.8 % (11.5-15.0); WHITE BLOOD COUNT (AUTO) 10.9 K/uL (4.3-11.0)
[2023-06-16] MEDS: PHENYTOIN EXTENDED RELEASE 100 MG CAPSULE PO SCH ×2 (09:28→16:57)
[2023-06-16] MEDS: LEVETIRACETAM (250 MG) 250 MG TABLET PO SCH ×2 (09:29→21:14)
[2023-06-16] MEDS: ASPIRIN 81 MG TAB.CHEW PO SCH (09:29)
[2023-06-16] MEDS: AMLODIPINE BESYLATE 10 MG TABLET PO SCH (09:29)
[2023-06-16] MEDS: SERTRALINE HCL 50 MG TABLET PO SCH (09:29)
[2023-06-16] MEDS: LACOSAMIDE 50 MG TABLET PO SCH ×2 (09:29→21:14)
[2023-06-16] MEDS: APIXABAN 5 MG TABLET PO SCH ×2 (09:31→19:33)
[2023-06-16 10:28] LABS: CALCIUM, SERUM 8.6 mg/dL (8.5-10.1); CREATININE 1.2 mg/dL (0.6-1.3); POTASSIUM 3.1 mmol/L (3.5-5.1)
[2023-06-16 10:29] LABS: MAGNESIUM 1.7 mg/dL (1.8-2.4)
[2023-06-16 12:00] VITALS: BP 150/73; TEMP 98; O2SAT 98
[2023-06-16] MEDS: CEFTRIAXONE 1 G in IV D5W 50 ML IV SCH (13:30)
[2023-06-16] MEDS: IV LR 1000 ML 1,000 ML IV PRN (13:31)
[2023-06-16 16:52] VITALS: BP 160/70; TEMP 98.8; O2SAT 100
[2023-06-16] MEDS ORDERED: POTASSIUM CHLORIDE 20 MEQ TAB.PRT.SR PO ONE (18:30)
[2023-06-16 19:00] VITALS: BP 168/104; TEMP 97.9; O2SAT 95
[2023-06-16] MEDS: Magnesium 1GM/D5W 100ML PREMIX 100 ML IV SCH ×2 (22:42→23:44)
[2023-06-16 23:44] LABS: APPEARANCE,URINE CLEAR (CLEAR); BILIRUBIN,URINE NEGATIVE (NEGATIVE); BLOOD, URINE 3+ Ery/uL (NEGATIVE); COLOR,URINE YELLOW (YELLOW); KETONES,URINE NEGATIVE (NEGATIVE); LEUKOCYTE ESTERASE ,URINE 2+ (NEGATIVE); NITRITE, URINE NEGATIVE (NEGATIVE); PH,URINE 6.5 (5.0-8.0); PROTEIN,URINE TRACE mg/dl (NEGATIVE); UGLUCOSE NEGATIVE (NEGATIVE); UROBILINOGEN,URINE 0.2 EU/dL (0.2)
[2023-06-16 23:47] LABS: ADD URINE CULTURE YES; BACTERIA,URINE Rare /HPF (None Seen); EOSINOPHIL,URINE None Seen; RBC,URINE 51-80 /HPF (0-2); SQUAMOUS EPITHELIAL CELL,UR Few /HPF (None Seen)
[2023-06-16 23:55] LABS: CREATININE, URINE 13.9 MG/DL (30.0-125.0); URINE TOTAL PROTEIN 26.3 mg/dL (0-11.9)
[2023-06-17 05:49] LABS: BASOPHILS % (AUTO) 0.2 % (0.0-2.0); EOSINOPHILS # (AUTO) 0.2 K/uL (0.0-0.7); EOSINOPHILS % (AUTO) 2.6 % (0.0-6.0); HEMATOCRIT 42 % (39-51); HEMOGLOBIN 13.9 g/dL (13.5-17.5); LYMPHOCYTES # (AUTO) 0.7 K/uL (0.8-4.8); LYMPHOCYTES % (AUTO) 8.1 % (20.0-44.0); MEAN CORPUSCULAR HEMOGLOBIN 30 PG (26.0-33.0); MEAN CORPUSCULAR HGB CONC 33 g/dl (31.0-36.0); MEAN CORPUSCULAR VOLUME 90 fL (80-96); MONOCYTES # (AUTO) 1.6 K/uL (0.1-1.30); NEUTROPHILS # (AUTO) 6.2 K/uL (1.8-8.9); NEUTROPHILS % (AUTO) 71.1 % (43.0-81.0); PLATELET COUNT (AUTO) 146 K/uL (150-450); RED BLOOD CELL COUNT(AUTO) 4.64 MIL/uL (4.5-6.0); RED CELL DISTRIBUTION WIDTH 13.5 % (11.5-15.0); WHITE BLOOD COUNT (AUTO) 8.7 K/uL (4.3-11.0)
[2023-06-17 06:17] LABS: ALBUMIN 2.5 g/dL (3.4-5.0); BILIRUBIN,TOTAL 0.5 mg/dL (0.2-1.0); CALCIUM, SERUM 8.8 mg/dL (8.5-10.1); CREATININE 0.9 mg/dL (0.6-1.3); MAGNESIUM 2.1 mg/dL (1.8-2.4); PHOSPHORUS 2.8 mg/dL (2.5-4.9); POTASSIUM 3.1 mmol/L (3.5-5.1); TOTAL PROTEIN, SERUM 6.4 g/dL (6.4-8.2)
[2023-06-17 08:00] VITALS: BP 166/80; TEMP 97.4; O2SAT 97
[2023-06-17] MEDS ORDERED: POTASSIUM CHLORIDE 20 MEQ TAB.PRT.SR PO ONE (08:00)
[2023-06-17] MEDS: PHENYTOIN EXTENDED RELEASE 100 MG CAPSULE PO SCH ×2 (08:25→16:08)
[2023-06-17] MEDS: LACOSAMIDE 50 MG TABLET PO SCH ×2 (08:26→20:57)
[2023-06-17] MEDS: ASPIRIN 81 MG TAB.CHEW PO SCH (08:26)
[2023-06-17] MEDS: LEVETIRACETAM (250 MG) 250 MG TABLET PO SCH ×2 (08:26→21:25)
[2023-06-17] MEDS: SERTRALINE HCL 50 MG TABLET PO SCH (08:29)
[2023-06-17] MEDS: METOPROLOL TARTRATE 25 MG TABLET PO SCH ×2 (08:29→16:08)
[2023-06-17] MEDS: AMLODIPINE BESYLATE 10 MG TABLET PO SCH (08:29)
[2023-06-17] MEDS: hydrALAZINE HCL 25 MG TABLET PO SCH ×3 (08:56→20:58)
[2023-06-17] MEDS: APIXABAN 5 MG TABLET PO SCH ×2 (09:00→16:08)
[2023-06-17 09:50] LABS: ANISOCYTOSIS 1+; BASOPHILS % (MANUAL) 0 % (0.0-2.0); EOSINOPHILS % (MANUAL) 2 % (0-4); LYMPHOCYTES % (MANUAL) 11 % (16-48); MONOCYTES % (MANUAL) 15 % (0-11.0); NEUTROPHILS % (MANUAL) 72 (42-76); PLATELET ESTIMATE ADEQUATE
[2023-06-17] MEDS: CEFTRIAXONE 1 G in IV D5W 50 ML IV SCH (12:04)
[2023-06-17 16:00] VITALS: BP 150/90; TEMP 98; O2SAT 96
[2023-06-17] MEDS ORDERED: CEFTRIAXONE 2 G in IV D5W 100 ML IV SCH (16:00)
[2023-06-17 20:00] VITALS: BP 163/98; TEMP 97.7; O2SAT 95
[2023-06-17] MEDS ORDERED: LEVETIRACETAM (250 MG) 250 MG TABLET PO ONE (21:12)
[2023-06-18] MEDS: hydrALAZINE HCL 25 MG TABLET PO SCH ×3 (05:21→20:42)
[2023-06-18 06:38] LABS: BASOPHILS % (AUTO) 0.5 % (0.0-2.0); EOSINOPHILS # (AUTO) 0.3 K/uL (0.0-0.7); EOSINOPHILS % (AUTO) 2.8 % (0.0-6.0); HEMATOCRIT 42 % (39-51); HEMOGLOBIN 14.1 g/dL (13.5-17.5); LYMPHOCYTES # (AUTO) 1.1 K/uL (0.8-4.8); MEAN CORPUSCULAR HEMOGLOBIN 30 PG (26.0-33.0); MEAN CORPUSCULAR HGB CONC 34 g/dl (31.0-36.0); MEAN CORPUSCULAR VOLUME 90 fL (80-96); MONOCYTES # (AUTO) 1.7 K/uL (0.1-1.30); NEUTROPHILS # (AUTO) 6.9 K/uL (1.8-8.9); NEUTROPHILS % (AUTO) 68.7 % (43.0-81.0); PLATELET COUNT (AUTO) 169 K/uL (150-450); RED BLOOD CELL COUNT(AUTO) 4.63 MIL/uL (4.5-6.0); RED CELL DISTRIBUTION WIDTH 13.4 % (11.5-15.0); WHITE BLOOD COUNT (AUTO) 10.1 K/uL (4.3-11.0)
[2023-06-18 07:12] LABS: CALCIUM, SERUM 8.6 mg/dL (8.5-10.1); CREATININE 0.9 mg/dL (0.6-1.3); POTASSIUM 2.9 mmol/L (3.5-5.1)
[2023-06-18 08:00] VITALS: BP 153/97; TEMP 97.6; O2SAT 98
[2023-06-18] MEDS ORDERED: LEVO500T90 PO (08:46)
[2023-06-18] MEDS ORDERED: BACL10TA PO (08:46)
[2023-06-18] MEDS ORDERED: AMLO10TA4 PO (08:49)
[2023-06-18] MEDS ORDERED: HYDR-4076 PO (08:49)
[2023-06-18] MEDS: LACOSAMIDE 50 MG TABLET PO SCH ×2 (09:04→20:42)
[2023-06-18] MEDS: METOPROLOL TARTRATE 25 MG TABLET PO SCH ×2 (09:06→16:39)
[2023-06-18 09:07] LABS: PTH, INTACT 37 pg/mL (15-65)
[2023-06-18] MEDS: ASPIRIN 81 MG TAB.CHEW PO SCH (09:07)
[2023-06-18] MEDS: SERTRALINE HCL 50 MG TABLET PO SCH (09:07)
[2023-06-18] MEDS: PHENYTOIN EXTENDED RELEASE 100 MG CAPSULE PO SCH ×2 (09:07→16:38)
[2023-06-18] MEDS: AMLODIPINE BESYLATE 10 MG TABLET PO SCH (09:07)
[2023-06-18] MEDS: LEVOFLOXACIN (250MG) 250 MG TABLET PO SCH (09:12)
[2023-06-18] MEDS: BACLOFEN (10 MG) 10 MG TABLET PO SCH ×3 (09:13→16:38)
[2023-06-18] MEDS: APIXABAN 5 MG TABLET PO SCH ×2 (09:18→16:39)
[2023-06-18] MEDS: LEVETIRACETAM (250 MG) 250 MG TABLET PO SCH ×2 (09:49→20:42)
[2023-06-18] MEDS: POTASSIUM CHLORIDE 20 MEQ TAB.PRT.SR PO SCH ×3 (11:42→14:54)
[2023-06-18 13:10] LABS: ANISOCYTOSIS 1+; BASOPHILS % (MANUAL) 0 % (0.0-2.0); EOSINOPHILS % (MANUAL) 3 % (0-4); LYMPHOCYTES % (MANUAL) 12 % (16-48); MONOCYTES % (MANUAL) 8 % (0-11.0); NEUTROPHILS % (MANUAL) 77 (42-76); PLATELET ESTIMATE ADEQUATE
[2023-06-18 16:00] VITALS: BP 137/72; TEMP 98.6; O2SAT 96
[2023-06-18 20:30] VITALS: BP 179/96; TEMP 98.1; O2SAT 96
[2023-06-19] MEDS: hydrALAZINE HCL 25 MG TABLET PO SCH ×2 (05:13→13:01)
[2023-06-19 06:37] LABS: CREATININE 0.9 mg/dL (0.6-1.3); POTASSIUM 3.2 mmol/L (3.5-5.1)
[2023-06-19 08:00] VITALS: BP 184/107; TEMP 99; O2SAT 95
[2023-06-19] MEDS: SERTRALINE HCL 50 MG TABLET PO SCH (08:37)
[2023-06-19] MEDS: LEVETIRACETAM (250 MG) 250 MG TABLET PO SCH (08:37)
[2023-06-19] MEDS: PHENYTOIN EXTENDED RELEASE 100 MG CAPSULE PO SCH (08:37)
[2023-06-19] MEDS: LEVOFLOXACIN (250MG) 250 MG TABLET PO SCH (08:38)
[2023-06-19] MEDS: ASPIRIN 81 MG TAB.CHEW PO SCH (08:38)
[2023-06-19] MEDS: LACOSAMIDE 50 MG TABLET PO SCH (08:38)
[2023-06-19] MEDS: BACLOFEN (10 MG) 10 MG TABLET PO SCH ×2 (08:38→13:02)
[2023-06-19] MEDS: AMLODIPINE BESYLATE 10 MG TABLET PO SCH (08:39)
[2023-06-19] MEDS: METOPROLOL TARTRATE 25 MG TABLET PO SCH (08:39)
[2023-06-19] MEDS: APIXABAN 5 MG TABLET PO SCH (09:00)
[2023-06-19] MEDS ORDERED: POTASSIUM CHLORIDE 20 MEQ TAB.PRT.SR PO ONE (10:00)
[2023-06-19 11:07] LABS: *SPE A/G RATIO 0.9 (0.7-1.7); *SPE ALBUMIN 2.6 g/dL (2.9-4.4); *SPE ALPHA-1-GLOBULIN 0.4 g/dL (0.0-0.4); *SPE ALPHA-2-GLOBULIN 0.8 g/dL (0.4-1.0); *SPE BETA GLOBULIN 0.7 g/dL (0.7-1.3); *SPE M-SPIKE Not Observed g/dL (Not Observed); *SPE PROTEIN TOTAL 5.6 g/dL (6.0-8.5)
[2023-06-19] MEDS ORDERED: GUAIFENESIN/D-METHORPHAN HB 5 ML UDC PO PRN (13:00)
[2023-06-19 13:01] VITALS: BP 124/87
== END 2023-06-19 15:15 | DRG 720 ==
LOC: ER 06:40 → TELE 13:23 → MED 06-16 09:51
PROVIDERS: ADMIT Internal Medicine; ATTEND Internal Medicine
DX: A41.81 Sepsis due to Enterococcus (principal); N17.0 Acute kidney failure with tubular necrosis; I69.354 Hemiplegia and hemiparesis following cerebral infarction affecting left non-dominant side; N13.6 Pyonephrosis; I48.20 Chronic atrial fibrillation, unspecified; G40.909 Epilepsy, unspecified, not intractable, without status epilepticus; K59.09 Other constipation; E78.5 Hyperlipidemia, unspecified; I10 Essential (primary) hypertension; Z20.822 Contact with and (suspected) exposure to COVID-19; Z79.01 Long term (current) use of anticoagulants; Z79.899 Other long term (current) drug therapy; Z88.0 Allergy status to penicillin; Z79.82 Long term (current) use of aspirin; Z86.19 Personal history of other infectious and parasitic diseases; R06.6 Hiccough
CPT/HCPCS: 36415; 71045-TC; 80048-TC; 80053-TC; 80076-TC; 81001; 82550-TC; 82570-TC; 83605-TC; 83735-TC; 83880; 83970; 84100-TC; 84155; 84165; 84300-TC; 84484-TC; 85025-TC; 85730-TC; 87040-TC; 87086-TC; 87186-TC; 97112-TC; 97116-TC; 97530-TC; A4223; C9803; G0378; J0692; J0696; J3230; J3370; J3475; J3490; J7030; J7050; J7060; J7120